=== PATIENT | male | born 2000 | race Caucasian/White ===

== ENCOUNTER 2021-06-04 19:35 | Emergency (ER) | payer OTHER, SELFPAY ==
--- NOTE | ~2021-06-04 | CT_ITS ---
EXAMINATION: CT abdomen pelvis w con DATE: 06/05/2021 00:53 INDICATION: Mid abdominal pain and vomiting for 4 days TECHNIQUE: Computed tomography (CT) of the abdomen and pelvis was performed with 100 cc Omnipaque 350 intravenous contrast. Automated exposure control and iterative reconstruction technique were employe d. Exam dose: 1096.94 mGy-cm total exam DLP. COMPARISON: None. FINDINGS: Normal heart size. No pericardial or pleural effusion. The lung bases are clear. Diffuse hepatic steatosis. No hepatic, splenic, pancreatic, and adrenal or renal space-occupying mass lesion. No bile duct or pancreatic duct dilatation. The gallbladder is contracted. No urinary tract calculus or hydroureteronephrosis. The urinary bladder is unremarkable. Epiploic appendagitis of the sigmoid colon with mild surrounding inflammatory change. Normal appendix . No bowel obstruction, bowel wall thickening, pneumatosis or intraperitoneal free air. Included skeletal structures are unremarkable. IMPRESSION: Epiploic appendagitis of the sigmoid colon Reviewed, dictated and finalized at [facility]. Reviewed, dictated and finalized at [facility].
[2021-06-04 20:10] VITALS: BP 148/71; PULSE 89; RESP 16; TEMP 36.8; O2SAT 98
[2021-06-04 20:47] LABS: Add Urine Microscopic? YES; Appearance Urine Clear (Clear); Bilirubin Urine Negative (Negative); Blood Urine Negative (Negative); Color Urine Yellow (Yellow); Glucose Urine UA Negative (Negative); Ketones Urine Negative (Negative); Leukocyte Esterase Ur Negative LEU/UL (Negative); Mucus Urine Rare /lpf; Nitrate Urine Negative (Negative); Protein Urine 1+ mg/dL (Negative); Specific Grav Ur 1.026 (1.001-1.035); WBC Urine 0-3 /hpf
[2021-06-04 20:50] LABS: Basophils Absolute Auto 0.1 K/mm3 (0.0-0.1); Basophils Percent Auto 0.7 % (0.2-1.2); Eosinophils Absolute Auto 0.1 K/mm3 (0-0.3); Eosinophils Percent Auto 1.6 % (0-4.4); Hematocrit 40.6 % (42.0-52.0); Hemoglobin 14.2 g/dL (14.0-18.0); Immature Granulocyte Absolute 0.01 K/mm3 (0.00-0.031); Immature Granulocyte Percent A 0.1 % (0-0.5); Lymphocytes Absolute Auto 1.44 K/mm3 (0.9-3.2); Lymphocytes Percent Auto 20.9 % (18.3-44.2); Mean Corpuscular Hemoglobin 31.3 pg (26-34); Mean Corpuscular Volume 89.6 fl (80-100); Mean Platelet Volume 9.9 fl (7.4-10.4); Monocytes Absolute Auto 0.6 K/mm3 (0.1-0.6); Monocytes Percent Auto 8.7 % (2.6-8.5); Neutrophils Absolute Auto 4.7 K/mm3 (1.3-6.7); Platelet Count Result 239 k/mm3 (150-375); Red Blood Count 4.53 M/mm3 (4.6-6.20); Red Cell Distribution Width 11.4 % (11.5-14.5); White Blood Count 6.9 K/mm3 (4.5-10.0)
[2021-06-04 21:00] LABS: Alanine Aminotransferase 35 U/L (4-50); Albumin Level 4.7 g/dL (3.7-5.6); Alkaline Phosphatase 86 U/L (58-237); Anion Gap 8 mmol/L (8-16); Aspartate Amino Transferase 35 U/L (17-59); Bilirubin,Total 0.5 mg/dL (0.2-1.3); Blood Urea Nitrogen 24 mg/dL (8-21); Calcium 9.4 mg/dL (8.9-10.7); Carbon Dioxide 30 mmol/L (22-30); Chloride 103 mmol/L (98-107); Estimated CRCL calculation 140 ml/min; Estimated Glomerular Filt Rate > 60; Glucose 96 mg/dL (65-110); Lipase 107 U/L (23-300); Potassium 3.8 mmol/L (3.4-5.0); Sodium 141 mmol/L (134-143)
--- NOTE | 2021-06-04 23:24 | ED.GENADULT ---
HPI - General Adult General Chief complaint: Abdominal Pain Stated complaint: Abdominal Pain Time Seen by Provider: 06/04/21 22:38 History of Present Illness HPI narrative: Patient 20-year-old gentleman who presents to emergency department with chief complaint of abdominal pain. Patient states that today he has been having pain in his lower parts of his abdomen reports its worse whenever he passes gas reports no diarrhea reports has had some nausea with this denies any prior surgical history reports no fever Related Data Home Medications Medication Instructions Recorded Confirmed No Home Medications 06/04/21 06/04/21 Allergies Allergy/AdvReac Type Severity Reaction Status Date / Time peanut Allergy Hives Verified 06/04/21 23:28 Review of Systems Review of Systems: A 10 system review of systems was completed on the patient and is negative except for what is stated in the HPI. Nursing and ancillary documentation was reviewed. Exam Narrative: GENERAL: Well-appearing, well-nourished, and in no acute distress. HEAD: Normocephalic, atraumatic. EYES: PERRLA and EOMI. ENT: Nares clear, no rhinorrhea or epistaxis. Mucous membranes moist. NECK: Supple. CHEST: Clear to auscultation. No respiratory distress. HEART: Regular rate and rhythm. No murmur heard. Normal peripheral pulses. ABDOMEN: Soft, soft tender to palpation, nondistended, normal active bowel sounds. EXTREMITIES: Normal range of motion. No edema. SKIN: Warm, dry, no rash. NEURO: No focal deficits. Alert and oriented x3. PSYCH: Normal mood and affect. Course Vital Signs Vital signs: Vital Signs Temperature 36.8 C 06/04/21 20:10 Pulse Rate 89 06/04/21 20:10 Respiratory Rate 16 06/04/21 20:10 Blood Pressure 148/71 H 06/04/21 20:10 Pulse Oximetry 98 06/04/21 20:10 Temperature 36.8 C 06/04/21 20:10 Pulse Rate 74 06/04/21 23:35 Respiratory Rate 16 06/04/21 23:35 Blood Pressure 135/78 06/04/21 23:35 Pulse Oximetry 100 06/04/21 23:35 Medical Decision Making Vital Signs Vital Signs: Vital Signs Temperature 36.8 C 06/04/21 20:10 Pulse Rate 89 06/04/21 20:10 Respiratory Rate 16 06/04/21 20:10 Blood Pressure 148/71 H 06/04/21 20:10 Pulse Oximetry 98 06/04/21 20:10 Temperature 36.8 C 06/04/21 20:10 Pulse Rate 74 06/04/21 23:35 Respiratory Rate 16 06/04/21 23:35 Blood Pressure 135/78 06/04/21 23:35 Pulse Oximetry 100 06/04/21 23:35 Lab Data Result diagrams: 06/04/21 20:26 06/04/21 20:26 Labs: Lab Results 06/04/21 06/04/21 06/04/21 Range/Units 20:26 20:26 20:29 WBC 6.9 (4.5-10.0) K/mm3 RBC 4.53 L (4.6-6.20) M/mm3 Hgb 14.2 (14.0-18.0) g/dL Hct 40.6 L (42.0-52.0) % MCV 89.6 (80-100) fl MCH 31.3 (26-34) pg MCHC 35.0 (32-36) g/dl RDW 11.4 L (11.5-14.5) % Plt Count 239 (150-375) k/mm3 MPV 9.9 (7.4-10.4) fl Immature Gran % (Auto) 0.1 (0-0.5) % Neut % (Auto) 68.0 (45.5-73.1) % Lymph % (Auto) 20.9 (18.3-44.2) % Slope % (Auto) 8.7 H (2.6-8.5) % Eos % (Auto) 1.6 (0-4.4) % Baso % (Auto) 0.7 (0.2-1.2) % Lymph # (Auto) 1.44 (0.9-3.2) K/mm3 Slope # (Auto) 0.6 (0.1-0.6) K/mm3 Eos # (Auto) 0.1 (0-0.3) K/mm3 Baso # (Auto) 0.1 (0.0-0.1) K/mm3 Abs Immat Gran (auto) 0.01 (0.00-0.031) K/mm3 Absolute Neuts (auto) 4.7 (1.3-6.7) K/mm3 Absolute Nucleated RBC 0.0 (0.0-0.012) K/mm3 Nucleated RBC % 0.0 (0.0-0.2) % Sodium 141 (134-143) mmol/L Potassium 3.8 (3.4-5.0) mmol/L Chloride 103 (98-107) mmol/L Carbon Dioxide 30 (22-30) mmol/L Anion Gap 8 (8-16) mmol/L BUN 24 H (8-21) mg/dL Creatinine 1.00 (0.7-1.3) mg/dL Estim Creat Clear Calc 140 ml/min Estimated GFR > 60 (59 - ) Glucose 96 (65-110) mg/dL Calcium 9.4 (8.9-10.7) mg/dL Total Bilirubin 0.5 (0.2-1.3) mg/dL AST 35 (17-59) U/L A
[2021-06-04] MEDS: SODIUM CHLORIDE 0.9% IV 1,000 ML 999 ML IV CONT (23:30)
[2021-06-04] MEDS: ONDANSETRON INJ 4 MG/2 ML VIAL IV PUSH (23:31)
[2021-06-04] MEDS: KETOROLAC 30 MG/ML VIAL (*BKC) IV PUSH (23:31)
[2021-06-04 23:35] VITALS: BP 135/78; PULSE 74; RESP 16; O2SAT 100
[2021-06-05 01:50] VITALS: BP 135/87; PULSE 89; RESP 14; O2SAT 99
== END 2021-06-05 01:47 | disposition home or self-care (01) ==
PROVIDERS: Emergency Medicine; Emergency Provider Emergency Medicine
DX: K63.89 Other specified diseases of intestine (principal)
CPT/HCPCS: 36415; 74177; 80053; 81001; 83690; 85025; 96361; 96374; 96375; 99284; J1885; J2405; J7030; Q9967

== ENCOUNTER 2022-01-09 00:17 | Emergency (ER) | payer OTHER, SELFPAY ==
[2022-01-09 00:18] VITALS: BP 127/90; PULSE 80; RESP 18; TEMP 37; O2SAT 100
--- NOTE | 2022-01-09 01:07 | ED.EAR ---
HPI - Ear Problem General Chief complaint: Ear Stated complaint: left ear pain Time Seen by Provider: 01/09/22 00:48 History of Present Illness HPI Narrative: Patient is a 21-year-old male here for evaluation of decreased hearing out of the left ear for the past day which he attributes to earwax. Patient attempted to use [id number] hydrogen peroxide, ear candles, and attempted to use a Q-tip to remove the wax without success. States he has a history of heavy earwax in his ears and he also uses headphones. Denies ear pain, ear discharge, pain behind the ear, or any other symptoms. Related Data Allergies Allergy/AdvReac Type Severity Reaction Status Date / Time peanut Allergy Hives Verified 01/09/22 00:19 Review of Systems Review of Systems: Gen.: Denies fevers or chills Eyes: Denies eye pain or visual change ENT: Reports decreased hearing on the left ear Respiratory: Denies shortness of breath or cough CV: Denies chest pain or palpitations GI: Denies abdominal pain nausea, emesis or diarrhea denies burning, urgency, frequency or hematuria Musculoskeletal: Denies back pain or muscle pain Neuro: Denies numbness, tingling, weakness or focal weakness Skin: Denies rash Except as documented, all other systems reviewed and negative All systems reviewed & are unremarkable except as noted in HPI and below Exam Narrative: Gen: Alert, oriented, no acute distress Eyes: EOMI, no icterus ENT: Large amount of cerumen obstructing TM on the left. TM is clear on the right. Pulm: Respirations even and unlabored, symmetric thorax expansion, no audible stridor or visible cyanosis GI: No distension, no voluntary/involuntary guarding Neuro: AOx4, moves all extremities without apparent difficulty or weakness, follows commands Skin: No jaundice, no visible bruising, rashes, lesions or wounds on exposed skin Psych: Normal mood/affect, insight/judgement good, adequate fund of knowledge, recent/remote memory intact Course Vital Signs Vital signs: Vital Signs Temperature 98.6 F 01/09/22 00:18 Pulse Rate 80 01/09/22 00:18 Respiratory Rate 18 01/09/22 00:18 Blood Pressure 127/90 01/09/22 00:18 Pulse Oximetry 100 01/09/22 00:18 Temperature 98.6 F 01/09/22 00:18 Pulse Rate 80 01/09/22 00:18 Respiratory Rate 18 01/09/22 00:18 Blood Pressure 127/90 01/09/22 00:18 Pulse Oximetry 100 01/09/22 00:18 Procedures Ear Wax Removal Left Ear: Ear Wax Removal Date: 01/09/22 Ear Wax Removal Time: 01:08 Cerumenolytic Used: other (Irrigated with catheter tip on syringe with warm tap water.) Results: Re-examined: cerumen removed completely TM Examination: TM(s) intact, normal appearance Ear Canal Exam: atraumatic Patient Tolerated Procedure: well Complications: no problems Technique: ear canal irrigated Additional Comments: Large amount of cerumen irrigated out of left ear canal. TM clear postprocedure. Medical Decision Making MDM Narrative Medical decision making narrative: 21-year-old male here for evaluation of decreased hearing of the left ear. Left TM is obstructed by cerumen. Cerumen was removed by irrigation and patient's hearing was restored to normal. Advised Debrox and bulb syringe irrigation in the future for patient's ceruminosis, advised against Q tip use. Vital Signs Vital Signs: Vital Signs Temperature 98.6 F 01/09/22 00:18 Pulse Rate 80 01/09/22 00:18 Respiratory Rate 18 01/09/22 00:18 Blood Pressure 127/90 01/09/22 00:18 Pulse Oximetry 100 01/09/22 00:18 Temperature 98.6 F 01/09/22 00:18 Pulse Rate 80 01/09/22 00:18 Respiratory Rate 18 01/09/22 00:18 Blood Pressure 127/90 01/09/22 00:18 Pulse Oximetry 100 01/09/22 00:18 Discharge Plan Discharge Clinical Impression: Cerumen impaction Qualifiers: Laterality: left Qualified Code(s): H61.22 - Impacted cerumen, left ear Patient Dispositio
== END 2022-01-09 01:23 | disposition home or self-care (01) ==
PROVIDERS: Emergency Provider Emergency Medicine
DX: H61.22 Impacted cerumen, left ear (principal)
CPT/HCPCS: 69209; 99283

== ENCOUNTER 2022-06-14 15:35 | Emergency (ER) | payer OTHER, SELFPAY ==
--- NOTE | ~2022-06-14 | XR_ITS ---
EXAMINATION: XR shoulder RT min 2V INDICATION: Right shoulder pain TECHNIQUE: Four views of the right shoulder are submitted. COMPARISON: None FINDINGS: Normal alignment. No fracture. Glenohumeral and acromioclavicular joint spaces are normal. Soft tissues are unremarkable. IMPRESSION: 1. No acute osseous abnormality. Reviewed, dictated and finalized at [facility].
--- NOTE | ~2022-06-14 | XR_ITS ---
EXAMINATION: XR elbow RT min 3V INDICATION: Right elbow pain TECHNIQUE: Four views of the right elbow are obtained. COMPARISON: None available FINDINGS: There is posterior soft tissue swelling overlying the olecranon. Bone alignment is normal. There is no fracture. No joint effusion is identified. IMPRESSION: 1. Soft tissue swelling without acute osseous abnormality. Reviewed, dictated and finalized at location [facility].
--- NOTE | ~2022-06-14 | XR_ITS ---
EXAMINATION: XR wrist RT min 3V INDICATION: Right wrist pain TECHNIQUE: Four views of the right wrist are obtained. COMPARISON: None available FINDINGS: There is no fracture, dislocation, or subluxation. The bones, soft tissues, and joint space s are normal. IMPRESSION: 1. No acute osseous abnormality. Reviewed, dictated and finalized at location [facility].
[2022-06-14 15:37] VITALS: BP 120/68; PULSE 85; RESP 20; TEMP 36.6; O2SAT 99
--- NOTE | 2022-06-14 18:19 | WC.ED.TRAUMA ---
HPI - Trauma General Chief Complaint: Extremity Injury, Upper Stated Complaint: fell at work, hit right elbow and arm Time Seen by Provider: 06/14/22 18:08 History of Present Illness HPI narrative: Patient is a 21-year-old male here for evaluation of right shoulder elbow and wrist pain after a fall today. Patient states that he was putting something away while he was at work when he slipped on a puddle at work, causing him to fall and land directly on his right elbow. He is reported pain and swelling at the site ever since, also noting shooting pains down his arm. He has not taken any medicine for his pain yet. Denies head injury or loss consciousness in the fall. Related Data Allergies Allergy/AdvReac Type Severity Reaction Status Date / Time peanut Allergy Hives Verified 01/09/22 00:19 Review of Systems Review of Systems: Gen.: Denies fevers or chills Eyes: Denies eye pain or visual change ENT: Denies congestion Respiratory: Denies shortness of breath or cough CV: Denies chest pain or palpitations GI: Denies abdominal pain nausea, emesis or diarrhea denies burning, urgency, frequency or hematuria Musculoskeletal: Reports right elbow pain wrist pain and shoulder pain. Neuro: Denies numbness, tingling, weakness or focal weakness Skin: Denies rash Except as documented, all other systems reviewed and negative Exam Narrative: APPEARANCE: Well appearing, no pain in distress, well-nourished. Head: Normocephalic and atraumatic. EYES: PERRLA/EOMI, conjunctivae clear NOSE: No nasal drainage EARS: External ear normal in appearance THROAT: Oropharynx is clear. Mucous membranes are moist. NECK: No tenderness to palpation of C-spine. Supple. No adenopathy, no masses. RESPIRATORY: Airway patent, respirations nonlabored. Clear to auscultation bilaterally, no rales, rhonchi, wheezing. CARDIOVASCULAR: Regular rate and rhythm without murmurs, rubs, or gallops. ABDOMINAL: Normoactive bowel sounds. Soft, nontender, nondistended. No rebound tenderness or guarding. MUSCULOSKELETAL: Tender to palpation to right olecranon. No bony tenderness to right humerus or clavicle. Full range of motion in right upper extremity, does note pain with elbow extension. 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 Extremities are warm and well-perfused. Moves all extremities well. No edema. NEURO: Normal speech. No focal neurologic deficits. SKIN: Skin is warm and dry. No rashes. PSYCHIATRIC: Normal affect/mood. Course Vital Signs Vital signs: Vital Signs Temperature 97.9 F 06/14/22 15:37 Pulse Rate 85 06/14/22 15:37 Respiratory Rate 20 06/14/22 15:37 Blood Pressure 120/68 06/14/22 15:37 Pulse Oximetry 99 06/14/22 15:37 Oxygen Delivery Room Air 06/14/22 15:37 Temperature 97.9 F 06/14/22 15:37 Pulse Rate 85 06/14/22 15:37 Respiratory Rate 20 06/14/22 15:37 Blood Pressure 120/68 06/14/22 15:37 Pulse Oximetry 99 06/14/22 15:37 Oxygen Delivery Room Air 06/14/22 15:37 MDM - Trauma MDM Narrative Medical decision making narrative: 21-year-old male here for evaluation of elbow pain after what sounds like a mechanical fall at work today. He is complaining of elbow pain shoulder pain and wrist pain and all of the x-rays in the ED showed no acute fracture. Likely sprain or strain of the elbow. Patient was requesting a sling which I think is reasonable for his pain. He will be discharged with supportive care and ibuprofen. Discharge Plan Discharge Clinical Impression: Elbow pain Patient Disposition: Home, Self-Care Condition: Stable Instructions: Antibiotic Form, Elbow Sprain (ED) Additional Instructions: Your x-rays in the ER are negative. It is likely you have a sprain of your elbow. Please wear the sling for your comfort. Alternate between Tylenol and ibuprofen. You can take 1000mg of Tylenol every 6 hours and
[2022-06-14] MEDS: IBUPROFEN 600 MG TABLET PO (19:06)
== END 2022-06-14 19:21 | disposition home or self-care (01) ==
PROVIDERS: Emergency Provider Emergency Medicine
DX: S59.901A Unspecified injury of right elbow, initial encounter (principal); S49.91XA Unspecified injury of right shoulder and upper arm, initial encounter; S69.91XA Unspecified injury of right wrist, hand and finger(s), initial encounter; W01.0XXA Fall on same level from slipping, tripping and stumbling without subsequent striking against object, initial encounter
CPT/HCPCS: 73030; 73080; 73110; 99284; A9270

== ENCOUNTER 2022-07-24 13:56 | Emergency (ER) | payer OTHER, SELFPAY ==
--- NOTE | ~2022-07-24 | CT_ITS ---
EXAMINATION: CT abdomen pelvis w con DATE: 07/24/2022 15:15 INDICATION: Periumbilical pain. TECHNIQUE: Computed tomography (CT) of the abdomen and pelvis was performed with 100 cc Omnipaque 350 intravenous contrast. The dose-length product was 845.16 mGy-cm. Automated exposure control and iter ative reconstruction technique were employed. COMPARISON: CT dated 06/05/2021 FINDINGS: Lung bases are unremarkable. Heart size normal. No significant pleural or pericardial effus ion. No significant vascular abnormality. No lymphadenopathy. Fatty infiltration of the liver. The ad renal glands and kidneys are unremarkable. There is borderline size spleen without focal mass. There is an accessory splenule medial to the spleen. Gallbladder is present. Bilateral prominent ileocolic lymph nodes, likely reactive. Normal appendix. Nonobstructive bowel pattern. No free air or free flui d. IMPRESSION: 1. No acute abdominal abnormality. Reviewed, dictated and finalized at location [facility]. 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
[2022-07-24 14:05] VITALS: BP 130/81; PULSE 85; RESP 16; TEMP 36.1; O2SAT 99
[2022-07-24 14:48] LABS: Basophils Absolute Auto 0.1 K/mm3 (0.0-0.1); Basophils Percent Auto 1.2 % (0.2-1.2); Eosinophils Absolute Auto 0.2 K/mm3 (0-0.3); Eosinophils Percent Auto 5.6 % (0-4.4); Hematocrit 43.4 % (42.0-52.0); Immature Granulocyte Absolute 0.01 K/mm3 (0.00-0.031); Immature Granulocyte Percent A 0.2 % (0-0.5); Lymphocytes Absolute Auto 1.31 K/mm3 (0.9-3.2); Lymphocytes Percent Auto 31.7 % (18.3-44.2); Mean Corpuscular HGB Conc 34.6 g/dl (32-36); Mean Corpuscular Hemoglobin 31.4 pg (26-34); Mean Platelet Volume 9.6 fl (7.4-10.4); Monocytes Absolute Auto 0.5 K/mm3 (0.1-0.6); Monocytes Percent Auto 11.4 % (2.6-8.5); Neutrophils Absolute Auto 2.1 K/mm3 (1.3-6.7); Neutrophils Percent Auto 49.9 % (45.5-73.1); Platelet Count Result 252 k/mm3 (150-375); Red Blood Count 4.77 M/mm3 (4.6-6.20); Red Cell Distribution Width 11.2 % (11.5-14.5); White Blood Count 4.1 K/mm3 (4.5-10.0)
[2022-07-24 15:00] LABS: Alanine Aminotransferase 37 U/L (6-50); Albumin Level 4.7 g/dL (3.5-5.1); Alkaline Phosphatase 70 U/L (38-126); Anion Gap 7 mmol/L (8-16); Aspartate Amino Transferase 40 U/L (17-59); Bilirubin,Total 0.6 mg/dL (0.2-1.3); Blood Urea Nitrogen 16 mg/dL (9-20); Calcium 9.2 mg/dL (8.4-10.2); Carbon Dioxide 28 mmol/L (22-30); Chloride 102 mmol/L (98-107); Estimated CRCL calculation 138 ml/min; Estimated Glomerular Filt Rate > 60; Glucose 102 mg/dL (65-110); Lipase 105 U/L (23-300); Potassium 4.4 mmol/L (3.4-5.0); Sodium 137 mmol/L (137-145)
--- NOTE | 2022-07-24 15:03 | ED.ABDPAIN ---
HPI - Abdominal Pain General Chief Complaint: Abdominal Pain Stated Complaint: ABD Pain Since Time Seen by Provider: 07/24/22 14:35 History of Present Illness HPI narrative: Patient is a 22-year-old male here for evaluation of periumbilical abdominal pain since last evening. Patient states the pain developed while he was at work, is described as a sharp stabbing pain and is severe. Patient states the pain is worse after eating. He has not attempted any medicine for the pain. He also notes nausea and constipation, no vomiting or blood in his stools. He has never had surgery on his abdomen. No fevers or chills. Related Data Allergies Allergy/AdvReac Type Severity Reaction Status Date / Time peanut Allergy Hives Verified 07/24/22 14:05 Review of Systems Review of Systems: Gen.: Denies fevers or chills Eyes: Denies eye pain or visual change ENT: Denies congestion Respiratory: Denies shortness of breath or cough CV: Denies chest pain or palpitations GI: Reports abdominal pain. Denies nausea, emesis or diarrhea denies burning, urgency, frequency or hematuria Musculoskeletal: Denies back pain or muscle pain Neuro: Denies numbness, tingling, weakness or focal weakness Skin: Denies rash Except as documented, all other systems reviewed and negative Exam Narrative: APPEARANCE: Well appearing, no pain in distress, well-nourished. Head: Normocephalic and atraumatic. EYES: PERRLA/EOMI, conjunctivae clear NOSE: No nasal drainage EARS: External ear normal in appearance THROAT: Oropharynx is clear. Mucous membranes are moist. NECK: Supple. No adenopathy, no masses. RESPIRATORY: Airway patent, respirations nonlabored. Clear to auscultation bilaterally, no rales, rhonchi, wheezing. CARDIOVASCULAR: Regular rate and rhythm without murmurs, rubs, or gallops. ABDOMINAL: Tender in the periumbilical region. normoactive bowel sounds. Soft, nondistended. No rebound tenderness or guarding. MUSCULOSKELETAL: Extremities are warm and well-perfused. Moves all extremities well. No edema. NEURO: Normal speech. No focal neurologic deficits. SKIN: Skin is warm and dry. No rashes. PSYCHIATRIC: Normal affect/mood.. Course Vital Signs Vital signs: Vital Signs Temperature 97.0 F L 07/24/22 14:05 Pulse Rate 85 12/02/22 14:05 Respiratory Rate 16 07/24/22 14:05 Blood Pressure 130/81 07/24/22 14:05 Pulse Oximetry 99 07/24/22 14:05 Oxygen Delivery Room Air 07/24/22 14:05 Temperature 97.0 F L 07/24/22 14:05 Pulse Rate 85 07/24/22 14:05 Respiratory Rate 16 07/24/22 14:05 Blood Pressure 130/81 07/24/22 14:05 Pulse Oximetry 99 07/24/22 14:05 Oxygen Delivery Room Air 07/24/22 14:05 MDM - Abdominal Pain MDM Narrative Medical decision making narrative: 22-year-old male here for evaluation of periumbilical abdominal pain over the past day associated with nausea and constipation. Vital signs are normal, he has slight tenderness in the periumbilical region but no rebound or guarding. His basic labs are unremarkable, no leukocytosis, normal lipase. CT scan without any abnormalities. Patient feeling improved after pain meds. Likely contribution of constipation to patient's pain. He will be discharged home; advised MiraLAX, Maalox as needed for pain. Discussed return precautions and he voiced understanding. Lab Data 07/24/22 14:43 07/24/22 14:43 Labs: Lab Results 07/24/22 07/24/22 07/24/22 Range/Units 14:43 14:43 15:21 WBC 4.1 L (4.5-10.0) K/mm3 RBC 4.77 (4.6-6.20) M/mm3 Hgb 15.0 (14.0-18.0) g/dL Hct 43.4 (42.0-52.0) % MCV 91.0 (80-100) fl MCH 31.4 (26-34) pg MCHC 34.6 (32-36) g/dl RDW 11.2 L (11.5-14.5) % Plt Count 252 (150-375) k/mm3 MPV 9.6 (7.4-10.4) fl Immature Gran % (Auto) 0.2 (0-0.5) % Neut % (Auto) 49.9 (45.5-73.1) % Lymph % (Auto) 31.7 (18.3-44.2) % Leon % (Auto) 11.4 H (2.6-8.5) % Eos %
[2022-07-24 15:31] LABS: Appearance Urine Clear (Clear); Bilirubin Urine Negative (Negative); Blood Urine Negative (Negative); Color Urine Yellow (Yellow); Glucose Urine UA Negative (Negative); Ketones Urine Negative (Negative); Leukocyte Esterase Ur Negative LEU/UL (Negative); Nitrate Urine Negative (Negative); Protein Urine Negative (Negative)
[2022-07-24] MEDS: SODIUM CHLORIDE 0.9% IV 1,000 ML 999 ML IV CONT (15:36)
[2022-07-24] MEDS: KETOROLAC 15 MG/ML VIAL (*BKC) IV PUSH (15:36)
[2022-07-24] MEDS: FAMOTIDINE 20 MG/2 ML VIAL IV PUSH (15:36)
[2022-07-24 15:38] LABS: Add Urine Microscopic? NO
== END 2022-07-24 16:35 | disposition home or self-care (01) ==
PROVIDERS: Emergency Medicine; Emergency Provider Physician Assistant; PCP Physician Assistant
DX: R10.33 Periumbilical pain (principal)
CPT/HCPCS: 36415; 74177; 80053; 81003; 83690; 85025; 96361; 96374; 96375; 99284; J1885; J7030; Q9967

== ENCOUNTER 2023-07-20 06:32 | Emergency (ER) | payer OTHER, SELFPAY ==
[2023-07-20 06:34] VITALS: BP 138/72; PULSE 82; RESP 20; TEMP 37.1; O2SAT 99
--- NOTE | 2023-07-20 09:30 | ED.GENADULT ---
HPI - General Adult General Chief complaint: Skin/Abscess/Foreign Body Stated complaint: rash Time Seen by Provider: 07/20/23 08:54 History of Present Illness HPI narrative: Kirk Batista is a 23 y/o male who presents with reports of rash to his left third and fourth fingers that started about 3 months ago. He states it is itchy and harry when he washes his hands. Related Data Allergies Allergy/AdvReac Type Severity Reaction Status Date / Time peanut Allergy Hives Verified 07/24/22 14:05 Review of Systems Review of Systems: CONSTITUTIONAL: Denies fever, chills, or sweats. EYES: Denies visual changes, redness, or discharge. ENT: Denies rhinorrhea, congestion, sore throat, or otalgia. CARDIOVASCULAR: Denies chest pain, palpitations, or edema. RESPIRATORY: Denies cough or dyspnea. GASTROINTESTINAL: Denies abdominal pain, nausea, vomiting, or diarrhea. GENITOURINARY: Denies dysuria or hematuria. SKIN: itchy rash to his left third and fourth fingers for 3 months MUSCULOSKELETAL: Denies back pain, joint pain, or myalgia. NEUROLOGIC: Denies headache, numbness, dizziness, or weakness. PSYCHIATRIC: Denies anxiety or depression. Exam Narrative: GENERAL: Well-appearing, well-nourished, and in no acute distress. HEAD: Normocephalic, atraumatic. EYES: PERRLA and EOMI. ENT: Nares clear, no rhinorrhea or epistaxis. Mucous membranes moist. Oropharynx without tonsillar hypertrophy exudate or other lesions. NECK: Supple. No adenopathy or masses. No carotid bruits or JVD CHEST: Clear to auscultation. No respiratory distress. No wheezes rales or rhonchi HEART: Regular rate and rhythm. No murmur heard. Normal peripheral pulses. ABDOMEN: Soft, nontender, nondistended, normal active bowel sounds. EXTREMITIES: Normal range of motion. No edema. SKIN: Warm, dry,scaley pink rash to the base of his left third and fourth phalanx NEURO: No focal deficits. Alert and oriented x3. PSYCH: Normal mood and affect. Course Vital Signs Vital signs: Vital Signs Temperature 37.1 C 07/20/23 06:34 Pulse Rate 82 07/20/23 06:34 Respiratory Rate 20 07/20/23 06:34 Blood Pressure 138/72 07/20/23 06:34 Pulse Oximetry 99 07/20/23 06:34 Oxygen Delivery Room Air 07/20/23 06:34 Temperature 37.1 C 07/20/23 06:34 Pulse Rate 82 07/20/23 06:34 Respiratory Rate 20 07/20/23 06:34 Blood Pressure 138/72 07/20/23 06:34 Pulse Oximetry 99 07/20/23 06:34 Oxygen Delivery Room Air 07/20/23 06:34 Medical Decision Making MDM Narrative Medical decision making narrative: On exam pt is noted to have scaly red / pink rash to the anterior aspect of his left third and fourth phalanx He states it has been present for about 3 months and gets worse when he tries to wash his hands 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 concern for : contact dermatitis - will start pt on Zyrtec daily/ Benadryl at bedtime/ triamcinolone cream to affected area twice daily. Counseled pt to wear gloves when coming in contact to the possible irritants at work. Follow up with PCP return to the ED for any worsening symptoms or concerns. Medical Records Medical records reviewed: Yes I reviewed the external patient's medical records. Vital Signs Vital Signs: Vital Signs Temperature 37.1 C 07/20/23 06:34 Pulse Rate 82 07/20/23 06:34 Respiratory Rate 20 07/20/23 06:34 Blood Pressure 138/72 07/20/23 06:34 Pulse Oximetry 99 07/20/23 06:34 Oxygen Delivery Room Air 07/20/23 06:34 Temperature 37.1 C 07/20/23 06:34 Pulse Rate 82 07/20/23 06:34 Respiratory Rate 20 07/20/23 06:34 Blood Pressure 138/72 07/20/23 06:34 Pulse Oximetry 99 07/20/23 06:34 Oxygen Delivery Room Air 07/20/23 06:34 Vitals reviewed by me. Discharge Plan Discharge Clinical Impression: Contact dermatitis Patient Disposition: Home, Self-Care Condition: Stable Instructions: Antibiotic
== END 2023-07-20 09:47 | disposition home or self-care (01) ==
PROVIDERS: Emergency Provider Nurse Practitioner Family; PCP Registered Nurse
DX: L25.9 Unspecified contact dermatitis, unspecified cause (principal)
CPT/HCPCS: 99283

== ENCOUNTER 2023-10-23 23:40 | Emergency (ER) | payer OTHER, SELFPAY ==
[2023-10-23 23:49] VITALS: BP 127/100; PULSE 91; RESP 18; TEMP 36.6; O2SAT 97
--- NOTE | 2023-10-23 23:55 | PC.NURSE ---
pt unable to urinate at this time. this rn educated pt the benefit of providing a urine sample. this rn left pt a urine specimen cup along with cleansing towelette and provided pt instructions to use specimen cup and to utilize call light when pt was able to provide urine sample.
[2023-10-24 00:10] LABS: Appearance Urine Clear (Clear); Bilirubin Urine Negative (Negative); Blood Urine Negative (Negative); Color Urine Yellow (Yellow); Glucose Urine UA Negative (Negative); Ketones Urine Negative (Negative); Leukocyte Esterase Ur Negative LEU/UL (Negative); Nitrate Urine Negative (Negative); Protein Urine Negative (Negative); Specific Grav Ur 1.024 (1.001-1.035); pH Urine 6.5 (5.0-9.0)
[2023-10-24 00:15] LABS: Add Urine Microscopic? NO
--- NOTE | 2023-10-24 00:31 | ED.GENADULT ---
HPI - General Adult General Chief complaint: Recheck/Abnormal Lab/Rx Stated complaint: std check Time Seen by Provider: 10/24/23 00:11 Source: patient Mode of arrival: ambulatory Limitations: no limitations History of Present Illness HPI narrative: This is a 23-year-old male who presents to the ED for STD check. Patient states that his friend told him that his ex-girlfriend had chlamydia. No known positive test. He is seeking testing for this but denying any symptoms at this point. Denies any scrotal pain, swelling, penile pain or discharge. Denies urinary symptoms. Related Data Allergies Allergy/AdvReac Type Severity Reaction Status Date / Time peanut Allergy Hives Verified 10/23/23 23:53 Review of Systems Review of Systems: All systems as dictated in HPI Exam Narrative: GENERAL: Well-appearing, well-nourished, and in no acute distress. HEAD: Normocephalic, atraumatic. EYES: PERRLA and EOMI. ENT: Nares clear, no rhinorrhea or epistaxis. Mucous membranes moist. Oropharynx without tonsillar hypertrophy exudate or other lesions. NECK: Supple. No adenopathy or masses. CHEST: No respiratory distress. Clear to auscultation. No wheezes rales or rhonchi HEART: Regular rate and rhythm. No murmur heard. Normal peripheral pulses. ABDOMEN: Soft, nontender, nondistended, normal active bowel sounds. MSK: Normal range of motion. No edema. SKIN: Warm, dry, no rash. NEURO: Alert and oriented x3. No focal deficits. PSYCH: Normal mood and affect. Course Vital Signs Vital signs: Vital Signs Temperature 97.9 F 10/23/23 23:49 Pulse Rate 91 10/23/23 23:49 Respiratory Rate 18 10/23/23 23:49 Blood Pressure 127/100 H 10/23/23 23:49 Pulse Oximetry 97 10/23/23 23:49 Oxygen Delivery Room Air 10/23/23 23:49 Temperature 97.9 F 10/23/23 23:49 Pulse Rate 91 10/23/23 23:49 Respiratory Rate 18 10/23/23 23:49 Blood Pressure 127/100 H 10/23/23 23:49 Pulse Oximetry 97 10/23/23 23:49 Oxygen Delivery Room Air 10/23/23 23:49 Medical Decision Making MDM Narrative Medical decision making narrative: 23-year-old male presenting for STD check. Possible STD exposure but is unsure. Vitals are normal. Exam is benign. Gonorrhea, chlamydia, Trichomonas test all negative. Discharged in stable condition Vital Signs Vital Signs: Vital Signs Temperature 97.9 F 10/23/23 23:49 Pulse Rate 91 10/23/23 23:49 Respiratory Rate 18 10/23/23 23:49 Blood Pressure 127/100 H 10/23/23 23:49 Pulse Oximetry 97 10/23/23 23:49 Oxygen Delivery Room Air 10/23/23 23:49 Temperature 97.9 F 10/23/23 23:49 Pulse Rate 91 10/23/23 23:49 Respiratory Rate 18 10/23/23 23:49 Blood Pressure 127/100 H 10/23/23 23:49 Pulse Oximetry 97 10/23/23 23:49 Oxygen Delivery Room Air 10/23/23 23:49 Lab Data Labs: Lab Results 10/23/23 10/24/23 Range/Units 00:03 00:03 Urine Color Yellow (Yellow) Urine Appearance Clear (Clear) Urine pH 6.5 (5.0-9.0) Ur Specific [place] 1.024 (1.001-1.035) Urine Protein Negative (Negative) mg/dL Urine Glucose (UA) Negative (Negative) mg/dL Urine Ketones Negative (Negative) mg/dL Ur Blood (Man) Negative (Negative) Urine Nitrate Negative (Negative) Urine Bilirubin Negative (Negative) Urine Urobilinogen 1.0 (<2.0) mg/dL Leukocyte Esterase Rfl Negative (Negative) AZ/UL C. trachomatis (PCR) Not detected (NOT DETECTE) N. gonorrhoeae (PCR) Not detected (NOT DETECTE) T. vaginalis (PCR) Not detected (NOT DETECTE) Discharge Plan Discharge Clinical Impression: Screen for STD (sexually transmitted disease) Patient Disposition: Home, Self-Care Condition: Stable Instructions: Antibiotic Form Additional Instructions: Your exam today shows no evidence of chlamydia. No need for antibiotics at this point. Prescriptions: No Action Debrox 6.5 % drops 5 drp
[2023-10-24 01:26] LABS: Trichomonas Vag PCR NOT DETECTED (NOT DETECTE)
[2023-10-24 01:49] LABS: Chlamydia trachomatis NOT DETECTED (NOT DETECTE); Neisseria gonorrhoeae PCR NOT DETECTED (NOT DETECTE)
[2023-10-24 02:24] VITALS: BP 127/99; PULSE 87; RESP 18; O2SAT 97
== END 2023-10-24 02:14 | disposition home or self-care (01) ==
PROVIDERS: Emergency Provider Physician Assistant; PCP Registered Nurse
DX: Z11.3 Encounter for screening for infections with a predominantly sexual mode of transmission (principal)
CPT/HCPCS: 81003; 87491; 87591; 87661; 99283

== ENCOUNTER 2023-10-30 12:01 | Emergency (ER) | payer OTHER, SELFPAY ==
--- NOTE | ~2023-10-30 | XR_ITS ---
XR chest 1V portable DATE: 10/30/2023 12:59 INDICATION: Cough. Dyspnea. TECHNIQUE: Portable PA chest COMPARISON: None FINDINGS: Normal heart size. No hilar or mediastinal enlargement. No pulmonary infiltrate or consolid ation, pleural effusion or pulmonary vascular congestion or pneumothorax. Included skeletal structures are unremarkable. IMPRESSION: No active cardiopulmonary disease Reviewed, dictated and finalized at location A. TURNER MACHINE OPERATOR
[2023-10-30 12:06] VITALS: BP 155/79; PULSE 85; RESP 20; TEMP 36.4; O2SAT 99
--- NOTE | 2023-10-30 12:24 | ECG_ITS ---
Measurements Intervals [place] Rate: 81 P: 6 [place]: 163 QRS: -3 QRSD: 101 T: 35 QT: 324 QTc: 377 Interpretive Statements SINUS RHYTHM DELAYED PRECORDIAL R/S TRANSITION BASELINE ARTIFACT- I, II, III, AVR, AVF BORDERLINE ECG NO PREVIOUS ECG AVAILABLE FOR COMPARISON Electronically Signed On 10-30-2023 13:10:05 SEWING MACHINE OPERATOR ZIPPER by Vivek Cisneros D.O.
--- NOTE | 2023-10-30 12:33 | ED.GENADULT ---
HPI - General Adult General Chief complaint: Ear Stated complaint: ear ringing, ST. Time Seen by Provider: 10/30/23 12:10 Source: patient Mode of arrival: ambulatory Limitations: no limitations History of Present Illness HPI narrative: This is a 23-year-old male who presents to the ED with chief complaint of URI symptoms for the past 2 days. Endorses cough, congestion, left ear fullness, left ear ringing, shortness of breath and subjective fevers. Denies body aches. Unsure of any sick exposures but worsened drive-through line. Denies chest pain, abdominal pain, nausea, vomiting, urinary symptoms. Related Data Allergies Allergy/AdvReac Type Severity Reaction Status Date / Time peanut Allergy Hives Verified 10/30/23 12:04 Review of Systems Review of Systems: All systems as dictated in HPI Exam Narrative: GENERAL: Well-appearing, well-nourished, and in no acute distress. HEAD: Normocephalic, atraumatic. EYES: PERRLA and EOMI. ENT: Bilateral tympanic membrane injection. No bulging. Nasal congestion present. No rhinorrhea or epistaxis. mucous membranes moist. Oropharynx without tonsillar hypertrophy exudate or other lesions. NECK: Supple. No adenopathy or masses. CHEST: No respiratory distress. Clear to auscultation. No wheezes rales or rhonchi HEART: Regular rate and rhythm. No murmur heard. Normal peripheral pulses. ABDOMEN: Soft, nontender, nondistended, normal active bowel sounds. MSK: Normal range of motion. No edema. SKIN: Warm, dry, no rash. NEURO: Alert and oriented x3. No focal deficits. PSYCH: Normal mood and affect. Course Vital Signs Vital signs: Vital Signs Temperature 97.6 F 10/30/23 12:06 Pulse Rate 85 10/30/23 12:06 Respiratory Rate 20 10/30/23 12:06 Blood Pressure 155/79 H 10/30/23 12:06 Pulse Oximetry 99 10/30/23 12:06 Temperature 98.5 F 10/30/23 13:50 Pulse Rate 76 10/30/23 13:50 Respiratory Rate 17 10/30/23 13:50 Blood Pressure 123/71 10/30/23 13:50 Pulse Oximetry 99 10/30/23 13:50 Medical Decision Making [facility] Narrative Medical decision making narrative: This is a 23-year-old male who presents to the ED with chief complaint of URI symptoms for the past 2 days. Vitals are normal. Exam shows nasal congestion and left tympanic injection. Otherwise exam is benign Viral swabs are negative. Strep swab negative. EKG shows normal sinus rhythm. Chest x-ray is also normal. Symptoms consistent syndrome. Prescription for Flonase given. Pt will be discharged in stable condition. Return precautions given and supportive measures discussed. Pt is understanding and agreeable with plan for discharge and follow-up with PCP. Vital Signs Vital Signs: Vital Signs Temperature 97.6 F 10/30/23 12:06 Pulse Rate 85 10/30/23 12:06 Respiratory Rate 20 10/30/23 12:06 Blood Pressure 155/79 H 10/30/23 12:06 Pulse Oximetry 99 10/30/23 12:06 Temperature 98.5 F 10/30/23 13:50 Pulse Rate 76 10/30/23 13:50 Respiratory Rate 17 10/30/23 13:50 Blood Pressure 123/71 10/30/23 13:50 Pulse Oximetry 99 10/30/23 13:50 Lab Data Labs: Lab Results 10/30/23 Range/Units 12:17 Influenza A (RT-PCR) Negative (Negative) Influenza B (RT-PCR) Negative (Negative) RSV (RT-PCR) Negative (Negative) SARS-CoV-2 RNA (RT-PCR) Negative (Negative) Group A Strep (PCR) Not detected (Negative) Discharge Plan Discharge Clinical Impression: Acute viral syndrome Patient Disposition: Home, Self-Care Condition: Stable Instructions: Antibiotic Form Additional Instructions: Your exam today is reassuring. No evidence of COVID or flu RSV. No evidence of pneumonia. This is probably a viral illness that will get better in a few days. Continue to stay very well hydrated. Use Advil cold and Sinus for congestion. Also use Flonase daily for congestion. If you have any new or worsening symptoms please retur
[2023-10-30 12:59] LABS: Strep Group A RT-PCR NOT DETECTED (Negative)
[2023-10-30 13:10] LABS: Influenza A QL RT-PCR Negative (Negative); Influenza B QL RT-PCR Negative (Negative); RSV RNA, RT-PCR Negative (Negative); SARS-CoV-2 RNA PCR Negative (Negative)
[2023-10-30 13:50] VITALS: BP 123/71; PULSE 76; RESP 17; TEMP 36.9; O2SAT 99
== END 2023-10-30 13:50 | disposition home or self-care (01) ==
PROVIDERS: Emergency Medicine; Emergency Provider Physician Assistant; PCP Registered Nurse
DX: B34.9 Viral infection, unspecified (principal); Z20.822 Contact with and (suspected) exposure to COVID-19
CPT/HCPCS: 71045; 87637; 87651; 93005; 99283

== ENCOUNTER 2023-11-02 17:02 | Emergency (ER) | payer OTHER, SELFPAY ==
[2023-11-02 17:11] VITALS: BP 131/72; PULSE 90; RESP 16; TEMP 37.6; O2SAT 100
--- NOTE | 2023-11-02 17:41 | ED.URI ---
HPI - URI/Sore Throat General Chief Complaint: Upper Respiratory Infection Stated Complaint: Sinus Source: patient and RN notes reviewed Mode of arrival: ambulatory Limitations: no limitations History of Present Illness HPI Narrative: 23-year-old male presented for complaint of sinus pressure congestion, sore throat, bilateral ear pressure, cough. Onset 4 days. He was seen the day after symptom onset, tested negative for viruses and strep, and had a negative chest x-ray. He currently denies shortness of breath, wheezing, nausea vomiting, diarrhea, fevers or chills. He has been taking Flonase spray and Advil cold and Sinus as recommended in the ER. Denies significant improvement in symptoms. He states he cannot smell. MD elicited complaint: cough Related Data Allergies Allergy/AdvReac Type Severity Reaction Status Date / Time peanut Allergy Hives Verified 11/02/23 17:14 Review of Systems Review of Systems: CONSTITUTIONAL: Endorses malaise, denies chills, sweats, fever EYES: Denies visual changes, redness, or discharge ENT: Reports rhinorrhea, congestion, sinus pain, otalgia, sore throat CARDIOVASCULAR: Denies chest pain, palpitations, edema RESPIRATORY: Reports cough, post nasal drainage. Denies dyspnea GASTROINTESTINAL: Denies abdominal pain, nausea, vomiting, diarrhea SKIN: Denies rash or itching MUSCULOSKELETAL: Denies myalgia Exam Narrative: GENERAL: mildly Ill-appearing, nontoxic no acute distress. EYES: PERRLA, conjunctivae clear ENT: Mucous membranes moist. nasal congestion noted. TMs erythematous, bulging and intact bilaterally; canals not erythematous, no drainage; no tragal tenderness. Oropharynx erythematous with tonsillar swelling 2+ and exudates no drooling, no hoarseness, no trismus, uvula midline. No tripod positioning, muffled voice, soft palate or pharyngeal wall bulging NECK: Supple. No lymphadenopathy CHEST: Clear to auscultation, breath sounds equal. No wheezing, rhonchi, rales, or stridor. No respiratory distress, speaks in full sentences. HEART: Regular rate and rhythm. No murmur heard. SKIN: Warm, dry, no rash. NEURO: Alert and oriented x3. PSYCH: Normal mood and affect Course Course Emergency Course: Patient is aware of diagnosis, understands and agrees to treatment plan. Anticipatory guidance given. Patient agrees to follow-up as directed and is aware of reasons to seek care at the emergency department. Portions of this record may have been created with voice recognition software Level of Care: Express Care Visit Vital Signs Vital signs: Vital Signs Temperature 99.6 F 11/02/23 17:11 Pulse Rate 90 11/02/23 17:11 Respiratory Rate 16 11/02/23 17:11 Blood Pressure 131/72 11/02/23 17:11 Pulse Oximetry 100 11/02/23 17:11 Oxygen Delivery Room Air 11/02/23 17:11 Temperature 99.6 F 11/02/23 17:11 Pulse Rate 90 11/02/23 17:11 Respiratory Rate 16 11/02/23 17:11 Blood Pressure 131/72 11/02/23 17:11 Pulse Oximetry 100 11/02/23 17:11 Oxygen Delivery Room Air 11/02/23 17:11 reviewed MDM - URI/Sore Throat MDM Narrative Medical decision making narrative: Negative flu and COVID. Will treat for strep and AOM based on PE and CC. Discussed physical exam findings. Advised supportive measures and signs/symptoms to go to the ER. Pt is appropriate for outpt treatment and f/u. Differential Diagnosis Differential diagnosis: Likely upper respiratory infection, sinusitis and viral infection Lab Data Labs: Lab Results 11/02/23 Range/Units 17:20 POC SARS CoV-2 Ag Negative (Negative) Influenza A Screen Negative Reference Range: Negative Influenza B Screen Negative Reference Range: Negative Discharge Plan Discharge Clinical Impression: Upper respiratory infection, Otitis media Patient Disposition
== END 2023-11-02 18:00 | disposition home or self-care (01) ==
PROVIDERS: Emergency Provider Nurse Practitioner Family; PCP Registered Nurse
DX: J06.9 Acute upper respiratory infection, unspecified (principal); H66.90 Otitis media, unspecified, unspecified ear; Z20.822 Contact with and (suspected) exposure to COVID-19
CPT/HCPCS: 87426; 87804; 99213; G0463

== ENCOUNTER 2023-11-24 21:33 | Emergency (ER) | payer OTHER, SELFPAY ==
[2023-11-24 21:43] VITALS: BP 146/85; PULSE 88; RESP 15; TEMP 36.6; O2SAT 99
[2023-11-24 22:43] VITALS: BP 148/99; PULSE 76; RESP 16; TEMP 36.4; O2SAT 99
--- NOTE | 2023-11-24 23:32 | ED.GENADULT ---
HPI - General Adult General Chief complaint: Wound/Laceration Stated complaint: L middle finger lac Time Seen by Provider: 11/24/23 23:26 History of Present Illness HPI narrative: Patient is a 23-year-old male who presents to the emergency department this evening complaining of left middle finger. Patient states he did not see a knife in the sink when accidentally brushing his left middle finger again to the top left middle finger missing his fingernail. Patient is unsure when his last tetanus shot. He currently denies any additional injuries and has no further concerns at this time. There are no other modifying, alleviating, or precipitating factors. Related Data Allergies Allergy/AdvReac Type Severity Reaction Status Date / Time peanut Allergy Hives Verified 11/02/23 17:14 Review of Systems Review of Systems: All systems are reviewed and are negative unless stated otherwise in the HPI. Exam Narrative: General: Alert, awake, afebrile, in no acute distress. HEENT: PERRL, no rhinorrhea, no post nasal drip, oropharynx clear. Neck: Trachea midline, no JVD, no lymphadenopathy. Cardiovascular: Regular rate and rhythm, no murmurs, rubs or gallops, no peripheral edema. Respiratory: Clear to auscultation bilaterally, no tachypnea, no wheezing, no rhonchi, no rubs, no respiratory distress. Abdomen: Soft, nontender, nondistended, no rebound, no guarding, no peritoneal signs. Musculoskeletal: 1.5 cm superficial linear laceration to the top of the left middle femur parallel to patient's nail horizontally. Patient is able to flex is minimal in the the joints and extend his own without any difficulty, sensation intact, patient is neurovascularly intact. No active bleeding. Skin: No rashes or petechia, no signs of infection. Psychiatric: Alert and oriented, normal behavior and judgment for situation. Neurological: Alert and oriented to person, place, and time. Follows all commands. No focal deficits, speech is clear and fluent. Course Vital Signs Vital signs: Vital Signs Temperature 98 F 11/24/23 21:43 Pulse Rate 88 11/24/23 21:43 Respiratory Rate 15 11/24/23 21:43 Blood Pressure 146/85 H 11/24/23 21:43 Pulse Oximetry 99 11/24/23 21:43 Oxygen Delivery Room Air 11/24/23 21:43 Temperature 97.5 F L 11/24/23 22:43 Pulse Rate 76 11/24/23 22:43 Respiratory Rate 16 11/24/23 22:43 Blood Pressure 148/99 H 11/24/23 22:43 Pulse Oximetry 99 11/24/23 22:43 Oxygen Delivery Room Air 11/24/23 21:43 Medical Decision Making MDM Narrative Medical decision making narrative: The patient was evaluated by myself in the emergency department. 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 External medical records were reviewed at this time. Patient was administered a tetanus shot. Patient's laceration was properly irrigated using sterile saline. wound is very superficial with no evidence of foreign bodies. Laceration was repaired using Dermabond. Comorbidities impacting this visit include none. I have evaluated and discussed social determinants of health with the patient that could potentially impact subsequent diagnosis and treatment plans. On repeat assessment of the patient, reevaluation revealed that the patient is doing well and is in no acute distress. Patient symptoms have improved since he arrived to our emergency department. Repeat vital signs were all reviewed and noted to be stable. Differential diagnosis and treatment plan were discussed with the patient at bedside. Patient agrees with discussion and after shared medical decision making agrees with discharge. All questions were answered to the patient's satisfaction. Patient will follow up with his PCP in 3-5 days. Patient was provided with strict return precautions and instructed to return to the emergency department if any new or worsening symptoms develop. The patient was discharged
[2023-11-24] MEDS: TETANUS,DIPHTHERIA,AC PERTUSSIS ADULT (0.5 ML) BOOSTRIX IM (23:42)
[2023-11-25 00:03] VITALS: BP 136/90; PULSE 79; RESP 15; O2SAT 100
== END 2023-11-25 00:04 | disposition home or self-care (01) ==
LOC: ANHED 23:47
PROVIDERS: Emergency Provider Emergency Medicine; PCP Registered Nurse
DX: S61.213A Laceration without foreign body of left middle finger without damage to nail, initial encounter (principal); Z23 Encounter for immunization; W26.0XXA Contact with knife, initial encounter
CPT/HCPCS: 12001; 90471; 90715; 99282

== ENCOUNTER 2023-11-29 15:33 | Emergency (ER) | payer OTHER, SELFPAY ==
[2023-11-29 15:42] VITALS: BP 138/78; PULSE 93; RESP 16; TEMP 36.7; O2SAT 98
--- NOTE | 2023-11-29 16:07 | ED.WOUNDLAC ---
HPI - Wound/Laceration General Chief Complaint: Skin/Abscess/Foreign Body Stated Complaint: left middle finger infected Time Seen by Provider: 11/29/23 15:57 Source: patient, RN notes reviewed and old records reviewed Mode of arrival: ambulatory Limitations: no limitations History of Present Illness HPI narrative: Patient presents today with an injury to his left 3rd finger. Five days ago he was seen in the ER after lacerating the tip of his finger with a kitchen knife home. Glue was applied and note states the wound was fairly superficial. Patient states he has been caring for the wound as directed, but reports concerns that it may be infected. Related Data Home Medications Medication Instructions Recorded Confirmed No Home Medications 11/29/23 11/29/23 Allergies Allergy/AdvReac Type Severity Reaction Status Date / Time peanut Allergy Hives Verified 11/02/23 17:14 Review of Systems Review of Systems: CONSTITUTIONAL: Denies body aches, fever, chills, or sweats. EYES: Denies visual changes, redness, or discharge. ENT: Denies rhinorrhea, congestion, sore throat, or otalgia. CARDIOVASCULAR: Denies chest pain, palpitations, or edema. RESPIRATORY: Denies cough or dyspnea. GASTROINTESTINAL: Denies abdominal pain, nausea, vomiting, or diarrhea. GENITOURINARY: Denies dysuria or hematuria. SKIN: + finger wound. MUSCULOSKELETAL: Denies back pain, joint pain, or myalgia. NEUROLOGIC: Denies headache, numbness, tingling, or weakness. PSYCH: Denies depression or anxiety. PMFSH Comments At time of signature, I have reviewed and agree with nursing past medical, surgical, social and family history unless otherwise noted. Please see nursing chart for further information. There is no relevant family history pertinent to the presenting complaint Exam Narrative: GENERAL: Well-appearing, well-nourished, and in no acute distress. HEAD: Normocephalic, atraumatic. EYES: EOMI. No redness or drainage. Conjunctivae normal. ENT: Mucous membranes pink and moist. NECK: Normal AROM. CHEST: No respiratory distress. EXTREMITIES: Normal range of motion. No edema. SKIN: Warm, dry, no rash. Capillary refill normal. Normal skin turgor. Left 3rd finger: Glue to the tip of the finger is barely adhered. After removal of the glue wound is fairly moist. No signs of infection such as erythema, edema, drainage. Dressed with Band-Aids NEURO: No focal deficits. Alert and oriented x3. Gait steady. PSYCH: Normal affect. No signs of depression or anxiety. Course Course Level of Care: Express Care Visit Vital Signs Vital signs: Vital Signs Temperature 98.1 F 11/29/23 15:42 Pulse Rate 93 11/29/23 15:42 Respiratory Rate 16 11/29/23 15:42 Blood Pressure 138/78 11/29/23 15:42 Pulse Oximetry 98 11/29/23 15:42 Oxygen Delivery Room Air 11/29/23 15:42 Temperature 98.1 F 11/29/23 15:42 Pulse Rate 93 11/29/23 15:42 Respiratory Rate 16 11/29/23 15:42 Blood Pressure 138/78 11/29/23 15:42 Pulse Oximetry 98 11/29/23 15:42 Oxygen Delivery Room Air 11/29/23 15:42 Reviewed MDM - Wound/Laceration MDM Narrative Medical decision making narrative: Glue removed and replaced with Band-Aids. Care instructions given. No prescription medications indicated at this time. Anticipatory guidance given. Differential Diagnosis Differential diagnosis: Likely laceration, abscess, abrasion, avulsion of skin and other (Cellulitis) Critical Care Time Critical Care Time Critical Care Time: No Discharge Plan Discharge Clinical Impression: Laceration of finger Qualifiers: Encounter type: subsequent encounter Finger: middle finger Damage to nail status: without damage Foreign body presence: without foreign body Laterality: left Qualified Code(s): S61.213D - Laceration without foreign body of left middle finger without damage to nail, subsequent encounter Patient Disposition: Home, Self-Care Cond
== END 2023-11-29 16:15 | disposition home or self-care (01) ==
PROVIDERS: Emergency Provider Nurse Practitioner; PCP Registered Nurse
DX: S61.213D Laceration without foreign body of left middle finger without damage to nail, subsequent encounter (principal); W26.0XXD Contact with knife, subsequent encounter
CPT/HCPCS: 99212; G0463

== ENCOUNTER 2024-07-05 07:04 | Emergency (ER) | payer SELFPAY ==
--- NOTE | ~2024-07-05 | XR_ITS ---
EXAMINATION: XR chest 2V DATE: 07/05/2024 07:45 INDICATION: Chest pain. Dizziness, cough. TECHNIQUE: Frontal and lateral views of the chest were obtained. COMPARISON: Chest single view 10/30/2023, CT abdomen and pelvis 07/24/2022 FINDINGS: There is no pneumonia, pleural effusion, or pneumothorax. The heart size is normal. IMPRESSION: 1. No acute cardiopulmonary disease. 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
--- NOTE | 2024-07-05 07:07 | ECG_ITS ---
Test Date: 2024-07-05 07:14:16 Measurements Intervals [place] Rate: 64 P: 53 [place]: 176 QRS: 45 QRSD: 99 T: 41 QT: 369 QTc: 381 Interpretive Statements SINUS RHYTHM DELAYED PRECORDIAL R/S TRANSITION BASELINE ARTIFACT- I, III BORDERLINE ECG No previous ECG available for comparison Electronically Signed On 07-05-2024 08:06:09 GROUT MACHINE TENDER by Vivek Cisneros D.O.
[2024-07-05 07:08] VITALS: BP 142/82; PULSE 101; RESP 16; TEMP 36.4; O2SAT 99
[2024-07-05] MEDS: ASPIRIN 81 MG CHEWABLE TABLET 324 MG PO (07:48)
[2024-07-05 07:51] VITALS: O2SAT 99
[2024-07-05 07:54] VITALS: BP 135/88; PULSE 67; PULSE 69; RESP 17; O2SAT 99
[2024-07-05 08:02] LABS: Basophils Percent Auto 0.6 % (0.2-1.2); Eosinophils Absolute Auto 0.2 K/mm3 (0-0.3); Eosinophils Percent Auto 2.4 % (0-4.4); Hematocrit 44.6 % (42.0-52.0); Hemoglobin 15.5 g/dL (14.0-18.0); Immature Granulocyte Absolute 0.01 K/mm3 (0.00-0.031); Immature Granulocyte Percent A 0.2 % (0-0.5); Lymphocytes Absolute Auto 1.66 K/mm3 (0.9-3.2); Lymphocytes Percent Auto 26.3 % (18.3-44.2); Mean Corpuscular HGB Conc 34.8 g/dl (32-36); Mean Corpuscular Hemoglobin 31.4 pg (26-34); Mean Corpuscular Volume 90.5 fl (80-100); Mean Platelet Volume 9.8 fl (7.4-10.4); Monocytes Absolute Auto 0.5 K/mm3 (0.1-0.6); Monocytes Percent Auto 8.1 % (2.6-8.5); Neutrophils Percent Auto 62.4 % (45.5-73.1); Platelet Count Result 240 k/mm3 (150-375); Red Blood Count 4.93 M/mm3 (4.6-6.20); Red Cell Distribution Width 11.3 % (11.5-14.5); White Blood Count 6.3 K/mm3 (4.5-10.0)
--- NOTE | 2024-07-05 08:13 | ED_ITS ---
HPI - General Adult General Chief complaint: Chest Pain Stated complaint: sharp cp after 3 days of URI Time Seen by Provider: 07/05/24 07:49 History of Present Illness HPI narrative: 24-year-old male presents to the emergency department for evaluation for cough congestion and chest and back pain. patient states he did borrow a co-worker's vape then after using the vape she told them that she was sick. Patient then began developing upper respiratory symptoms. Patient states that he is having intermittent chest pain with coughing. patient also does complain of generalized body aches and fatigue. Related Data Allergies Allergy/AdvReac Type Severity Reaction Status Date / Time peanut Allergy Hives Verified 07/05/24 07:05 Review of Systems Review of Systems: All systems reviewed & are unremarkable except as noted in HPI and below Exam Narrative: APPEARANCE: Well appearing, no pain, no distress, well-nourished. HEAD: normocephalic, atraumatic. EYES: PERRLA/EOMI, conjunctivae clear. NOSE: Normal no drainage EARS:TMS clear with good light reflex. THROAT: Pharynx clear, no exudate. NECK: Supple. No adenopathy, no masses. RESPIRATORY: Airway patent, respirations nonlabored. Clear to auscultation bilaterally, no rales, rhonchi, wheezing. CARDIOVASCULAR: Regular rate and rhythm without murmurs rubs or gallops. ABDOMINAL: Soft, nontender, nondistended, normal bowel sounds MUSCULOSKELETAL: Moves all extremities. Strength/ROM intact, No edema, No calf tenderness. NEURO: Alert. Cranial nerves II through XII intact. Good gait. Good coordination SKIN: Warm, dry. Normal Color Course Vital Signs Vital signs: Vital Signs Temperature 97.6 F 07/05/24 07:08 Pulse Rate 101 H 07/05/24 07:08 Respiratory Rate 16 07/05/24 07:08 Blood Pressure 142/82 H 07/05/24 07:08 Pulse Oximetry 99 07/05/24 07:08 Temperature 97.5 F L 07/05/24 09:08 Pulse Rate 96 07/05/24 09:08 Respiratory Rate 13 07/05/24 09:08 Blood Pressure 125/81 07/05/24 09:08 Pulse Oximetry 97 07/05/24 09:08 Oxygen Delivery Room Air 07/05/24 07:51 Medical Decision Making MDM Narrative Medical decision making narrative: 24-year-old male presents emergency department for evaluation for upper respiratory symptoms cough and congestion. Patient is afebrile with no leukocytosis and hemoglobin of 15.5. Patient has no acute abnormalities on his CMP patient was positive for COVID. chest x-ray shows no acute cardiopulmonary abnormality. Patient was updated the results of his workup was complete the plan for discharge and close follow-up. Patient was advised to quit smoking, q uit vaping and patient was provided albuterol inhaler with spacer and Tessalon Perles for cough suppression. Differential Diagnosis Differential Diagnosis: COVID, influenza, RSV, pneumonia, bronchitis, pneumonitis Vital Signs Vital Signs: Vital Signs Temperature 97.6 F 07/05/24 07:08 Pulse Rate 101 H 07/05/24 07:08 Respiratory Rate 16 07/05/24 07:08 Blood Pressure 142/82 H 07/05/24 07:08 Pulse Oximetry 99 07/05/24 07:08 Temperature 97.5 F L 07/05/24 09:08 Pulse Rate 96 07/05/24 09:08 Respiratory Rate 13 07/05/24 09:08 Blood Pressure 125/81 07/05/24 09:08 Pulse Oximetry 97 07/05/24 09:08 Oxygen Delivery Room Air 07/05/24 07:51 Lab Data Lab results reviewed: Yes I reviewed the patient's lab results. 07/05/24 07:56 07/05/24 07:56 Labs: Lab Results 07/05/24 07/05/24 Range/Units 07:56 08:01 WBC 6.3 (4.5-10.0) K/mm3 RBC 4.93 (4.6-6.20) M/mm3 Hgb 15.5 (14.0-18.0) g/dL Hct 44.6 (42.0-52.0) % MCV 90.5 (80-100) fl MCH 31.4 (26-34) pg MCHC 34.8 (32-36) g/dl RDW 11.3 L (11.5-14.5) % Plt Count 240 (150-375) k/mm3 MPV 9.8 (7.4-10.4) fl Immature Gran % (Auto) 0.2 (0-0.5) % Neut % (Auto) 62.4 (45.5-73.1) % Lymph % (Auto) 26.3 (18.3-44.2) % [place] % (Auto) 8.1 (2.6-8.5) % Eos % (Auto) 2.4 (0-4.4) % Baso % (Auto) 0.6 (0.2-1.2) % Lymph # (Auto) 1.66 (0.9-3.2) K/mm3 [place] # (Auto) 0.5 (0.1-0.6) K/mm3 Eos # (Auto) 0.2 (0-0.3) K/mm3 Baso # (Auto) 0.0 (0.0-0.1) K/mm3 Abs Immat Gran (auto) 0.01 (0.00-0.031) K/mm3 Absolute Neuts (auto) 4.0 (1.3-6.7) K/mm3 Absolute Nucleated RBC 0.000 (0.0-0.012) K/mm3 Nucleated RBC % 0.0 (0.0-0.2) % PT 12.9 (11.1-14.7) Seconds INR 0.9 APTT 26.2 (22.3-36.8) Seconds Sodium 138 (137-145) mmol/L Potassium 3.8 (3.4-5.0) mmol/L Chloride 102 (98-107) mmol/L Carbon Dioxide 27 (22-30) mmol/L Anion Gap 9 (4-12) mmol/L BUN 18 (9-20) mg/dL Creatinine 0.90 (0.7-1.3) mg/dL Estim Creat Clear Calc 155 ml/min Estimated GFR > 60 (59 - ) Glucose 125 H (65-110) mg/dL Calcium 9.4 (8.4-10.2) mg/dL Total Bilirubin 1.0 (0.2-1.3) mg/dL AST 55 (17-59) U/L ALT 77 H (6-50) U/L Alkaline Phosphatase 57 (38-126) U/L Troponin I < 0.012 (0.000-0.034) ng/mL Total Protein 8.0 (6.3-8.2) g/dL Albumin 4.5 (3.5-5.1) g/dL Lipase 79 (23-300) U/L Influenza A (RT-PCR) Negative (Negative) Influenza B (RT-PCR) Negative (Negative) RSV (RT-PCR) Negative (Negative) SARS-CoV-2 RNA (RT-PCR) Positive A (Negative) Imaging Data Radiologist's impression: Impressions Chest X-Ray 07/05/24 07:54 IMPRESSION: 1. No acute cardiopulmonary disease. Discharge Plan Discharge Clinical Impression: COVID Patient Disposition: Home, Self-Care Condition: Stable Instructions: Antibiotic Form, COVID-19 (Coronavirus Disease 2019) (ED) Additional Instructions: Tylenol and ibuprofen for fever and for body aches. Albuterol for shortness of breath and Tessalon Perles for cough. Have close follow-up with your primary care physician. Prescriptions: New albuterol sulfate 90 mcg/actuation HFA aerosol inhaler 1 puff inhalation QID PRN (Reason: shortness of breath or wheezing) Qty: 6.7 0RF benzonatate 100 mg capsule 100 mg PO TID PRN (Reason: cough) Qty: 14 0RF Follow-up/Referrals: Allison,CLAY Montanez [Primary Care Provider] -
[2024-07-05 08:39] LABS: Partial Thromboplastin Time 26.2 Seconds (22.3-36.8)
[2024-07-05 08:41] LABS: Influenza A QL RT-PCR Negative (Negative); Influenza B QL RT-PCR Negative (Negative); RSV RNA, RT-PCR Negative (Negative); SARS-CoV-2 RNA PCR Positive (Negative)
[2024-07-05 08:42] LABS: INR 0.9; Prothrombin Time 12.9 Seconds (11.1-14.7)
[2024-07-05 09:08] VITALS: BP 125/81; PULSE 96; RESP 13; TEMP 36.4; O2SAT 97
[2024-07-05 12:21] LABS: Alanine Aminotransferase 77 U/L (6-50); Albumin Level 4.5 g/dL (3.5-5.1); Alkaline Phosphatase 57 U/L (38-126); Anion Gap 9 mmol/L (4-12); Aspartate Amino Transferase 55 U/L (17-59); Blood Urea Nitrogen 18 mg/dL (9-20); Calcium 9.4 mg/dL (8.4-10.2); Carbon Dioxide 27 mmol/L (22-30); Chloride 102 mmol/L (98-107); Estimated CRCL calculation 155 ml/min; Estimated Glomerular Filt Rate > 60; Glucose 125 mg/dL (65-110); Lipase 79 U/L (23-300); Potassium 3.8 mmol/L (3.4-5.0); Sodium 138 mmol/L (137-145)
[2024-07-05 12:33] LABS: Troponin I < 0.012 ng/mL (0.000-0.034)
== END 2024-07-05 09:10 | disposition home or self-care (01) ==
PROVIDERS: Emergency Provider Emergency Medicine; PCP Registered Nurse
DX: U07.1 COVID-19 (principal); R94.31 Abnormal electrocardiogram [ECG] [EKG]
CPT/HCPCS: 36415; 71046; 80053; 83690; 84484; 85025; 85610; 85730; 87637; 93005; 99284; A9270

== ENCOUNTER 2024-09-30 02:45 | Emergency (ER) | payer BC, SELFPAY ==
--- NOTE | ~2024-09-30 | XR_ITS ---
EXAMINATION: XR chest 1V portable DATE: 09/30/2024 03:05 INDICATION: Chest pain. TECHNIQUE: A single frontal view of the chest was obtained. COMPARISON: Chest 2 views 07/05/2024, CT abdomen and pelvis 07/24/2022 FINDINGS: The lung volumes are small. No pneumonia, pleural effusion, or pneumothorax. The heart size is normal. IMPRESSION: 1. Small lung volumes. Reviewed, dictated and finalized at location A. MANAGER IMPRESSION: 1. Small lung volumes.
--- NOTE | 2024-09-30 02:47 | ECG_ITS ---
Test Date: 2024-09-30 02:55:52 Measurements Intervals [place] Rate: 73 P: 49 GA: 181 QRS: 27 QRSD: 98 T: 17 QT: 336 QTc: 373 Interpretive Statements SINUS RHYTHM WITH SINUS ARRHYTHMIA BORDERLINE R WAVE PROGRESSION, ANTERIOR LEADS CONSIDER INFERIOR INFARCT, AGE INDETERMINATE BASELINE ARTIFACT- I, III, AVR, AVL, AVF ABNORMAL ECG Compared to ECG 07/05/2024 07:14:16 No significant changes Electronically Signed On 09-30-2024 06:35:43 GAS PUMPER by Vivek Cisneros D.O.
--- OUTSIDE RECORDS SUMMARY | 2024-09-30 02:47 | XMS_ITS | Continuity of Care Document ---
Author Organization [facility] Address [address] [place] [address] Phone Care Team Providers Care Teacher Asst Name Role Phone Unavailable Unavailable Unavailable Advance Directives Directive Yes / No Effective Date File Name No Information Encounters Encounter Description Practice Location Reason(s) For Visit Diagnoses Date Provider Providers Copied on Encounter [facility], [address] [facility] [address], [place], [address], [place] tel:[phone] [facility] OFFICE No Information 9 No Information Referring Provider: FEMI PEACOCK, [address] [place] [address], [id number]. Family History Family Member Type Diagnosis Age At Onset No Information Payers Payer name Insurance type Covered republican ID Authorletty moore(s) [employer] [place] BLUE CARD PPO [id number] Social History Type Description Quantity Date Captured Comments Sex Male Smoking Status No Information Chief Complaint And Reason For Visit No Information History Of Present Illness Encounter Date Complaint History Of Prese nt Illness No Information Instructions Date Instruction Additional Infor mation No Information Assessments Type Assessment Date No Information
[2024-09-30 02:50] VITALS: BP 150/89; PULSE 87; RESP 22; TEMP 36.3; O2SAT 97
[2024-09-30 02:55] VITALS: BP 150/89; PULSE 85; RESP 18; O2SAT 95
[2024-09-30 03:03] LABS: Basophils Percent Auto 0.8 % (0.2-1.2); Eosinophils Absolute Auto 0.1 K/mm3 (0-0.3); Eosinophils Percent Auto 1.8 % (0-4.4); Hemoglobin 15.2 g/dL (14.0-18.0); Immature Granulocyte Absolute 0.02 K/mm3 (0.00-0.031); Immature Granulocyte Percent A 0.4 % (0-0.5); Lymphocytes Absolute Auto 1.63 K/mm3 (0.9-3.2); Lymphocytes Percent Auto 32.9 % (18.3-44.2); Mean Corpuscular HGB Conc 35.3 g/dl (32-36); Mean Corpuscular Hemoglobin 31.5 pg (26-34); Mean Corpuscular Volume 89.2 fl (80-100); Mean Platelet Volume 10.2 fl (7.4-10.4); Monocytes Absolute Auto 0.5 K/mm3 (0.1-0.6); Monocytes Percent Auto 9.3 % (2.6-8.5); Neutrophils Absolute Auto 2.7 K/mm3 (1.3-6.7); Neutrophils Percent Auto 54.8 % (45.5-73.1); Platelet Count Result 246 k/mm3 (150-375); Red Blood Count 4.82 M/mm3 (4.6-6.20); Red Cell Distribution Width 11.4 % (11.5-14.5)
[2024-09-30 03:14] LABS: INR 0.9; Prothrombin Time 12.6 Seconds (11.1-14.7)
[2024-09-30 03:15] LABS: Sodium 141 mmol/L (137-145)
[2024-09-30 03:21] LABS: Alanine Aminotransferase 98 U/L (6-50); Albumin Level 4.5 g/dL (3.5-5.1); Alkaline Phosphatase 65 U/L (38-126); Anion Gap 11 mmol/L (4-12); Aspartate Amino Transferase 58 U/L (17-59); Bilirubin,Total 0.8 mg/dL (0.2-1.3); Blood Urea Nitrogen 22 mg/dL (9-20); Calcium 9.6 mg/dL (8.4-10.2); Carbon Dioxide 26 mmol/L (22-30); Chloride 104 mmol/L (98-107); Estimated CRCL calculation 139 ml/min; Estimated Glomerular Filt Rate > 60; Glucose 107 mg/dL (65-110); Lipase 97 U/L (23-300); Potassium 4.1 mmol/L (3.4-5.0)
[2024-09-30 03:28] LABS: Troponin I < 0.012 ng/mL (0.000-0.034)
[2024-09-30 03:30] VITALS: BP 130/85; PULSE 81; RESP 26; O2SAT 95
[2024-09-30 04:45] VITALS: BP 136/83; PULSE 73; RESP 23; O2SAT 96
--- NOTE | 2024-09-30 05:24 | ED_ITS ---
HPI - General Adult General Chief complaint: Shortness of Breath/Dyspnea Stated complaint: chest pain with inspiration and sob Time Seen by Provider: 09/30/24 05:24 History of Present Illness HPI narrative: This is a 24-year-old male presenting ED with chief complaint of chest pain. The pain is sharp, intermittent, located center his chest, nonpositional, not associated with exertion. Patient has been having this chest pain intermittently over the last 3 months. Patient says it started when he 1st stop smoking. He also says that it is more common when he is under significant stress like when he is at work. Patient says he had cold symptoms 2 weeks ago. Has not taken anything for pain control. Patient denies fevers chills productive cough body aches headache abdominal pain urinary symptoms or lower extremity edema. Related Data Allergies Allergy/AdvReac Type Severity Reaction Status Date / Time peanut Allergy Hives Verified 09/30/24 03:24 Exam 2 Narrative: APPEARANCE: No apparent distress. Head: atraumatic. EYES: EOMI, NOSE: Atraumatic NECK: Trachea midline RESPIRATORY: No increased rate of breathing clear to auscultation CARDIOVASCULAR: RRR, no peripheral edema ABDOMINAL: Non-distended soft nontender MUSCULOSKELETAl: No obvious deformities NEURO: Alert. Moving 4/4 extremities SKIN:: Warm, dry. Normal color PSYCHIATRIC: Normal affect Course Vital Signs Vital signs: Vital Signs Temperature 97.4 F L 09/30/24 02:50 Pulse Rate 87 09/30/24 02:50 Respiratory Rate 22 H 09/30/24 02:50 Blood Pressure 150/89 H 09/30/24 02:50 Pulse Oximetry 97 09/30/24 02:50 Oxygen Delivery Room Air 09/30/24 02:50 Temperature 97.4 F L 09/30/24 02:50 Pulse Rate 87 09/30/24 02:50 Respiratory Rate 22 H 09/30/24 02:50 Blood Pressure 150/89 H 09/30/24 02:50 Pulse Oximetry 97 09/30/24 02:50 Oxygen Delivery Room Air 09/30/24 02:50 Medical Decision Making [facility] Narrative Medical decision making narrative: -Course: 24-year-old male presenting with pleuritic chest pain. Workup including troponins, EKG and chest x-ray were negative. Patient is PERC negative. Vital signs are stable the patient is well-appearing on exam. Pain may be due to pleurisy or possibly anxiety but I can detect no life-threatening causes of chest pain at this time. I think is safe for follow-up with primary care physician. Patient discharged with return precautions. -DDX includes but is not limited to: Pleurisy, pericarditis, ACS, pneumonia, pneumothorax, PE Vital Signs Vital Signs: Vital Signs Temperature 97.4 F L 09/30/24 02:50 Pulse Rate 87 09/30/24 02:50 Respiratory Rate 22 H 09/30/24 02:50 Blood Pressure 150/89 H 09/30/24 02:50 Pulse Oximetry 97 09/30/24 02:50 Oxygen Delivery Room Air 09/30/24 02:50 Temperature 97.4 F L 09/30/24 02:50 Pulse Rate 87 09/30/24 02:50 Respiratory Rate 22 H 09/30/24 02:50 Blood Pressure 150/89 H 09/30/24 02:50 Pulse Oximetry 97 09/30/24 02:50 Oxygen Delivery Room Air 09/30/24 02:50 Lab Data 09/30/24 02:58 09/30/24 02:58 Labs: Lab Results 09/30/24 Range/Units 02:58 WBC 5.0 (4.5-10.0) K/mm3 RBC 4.82 (4.6-6.20) M/mm3 Hgb 15.2 (14.0-18.0) g/dL Hct 43.0 (42.0-52.0) % MCV 89.2 (80-100) fl MCH 31.5 (26-34) pg MCHC 35.3 (32-36) g/dl RDW 11.4 L (11.5-14.5) % Plt Count 246 (150-375) k/mm3 MPV 10.2 (7.4-10.4) fl Immature Gran % (Auto) 0.4 (0-0.5) % Neut % (Auto) 54.8 (45.5-73.1) % Lymph % (Auto) 32.9 (18.3-44.2) % [place] % (Auto) 9.3 H (2.6-8.5) % Eos % (Auto) 1.8 (0-4.4) % Baso % (Auto) 0.8 (0.2-1.2) % Lymph # (Auto) 1.63 (0.9-3.2) K/mm3 [place] # (Auto) 0.5 (0.1-0.6) K/mm3 Eos # (Auto) 0.1 (0-0.3) K/mm3 Baso # (Auto) 0.0 (0.0-0.1) K/mm3 Abs Immat Gran (auto) 0.02 (0.00-0.031) K/mm3 Absolute Neuts (auto) 2.7 (1.3-6.7) K/mm3 Absolute Nucleated RBC 0.000 (0.0-0.012) K/mm3 Nucleated RBC % 0.0 (0.0-0.2) % PT 12.6 (11.1-14.7) Seconds INR 0.9 APTT 26.0 (22.3-36.8) Seconds Sodium 141 (137-145) mmol/L Potassium 4.1 (3.4-5.0) mmol/L Chloride 104 (98-107) mmol/L Carbon Dioxide 26 (22-30) mmol/L Anion Gap 11 (4-12) mmol/L BUN 22 H (9-20) mg/dL Creatinine 1.03 (0.7-1.3) mg/dL Estim Creat Clear Calc 139 ml/min Estimated GFR > 60 (59 - ) Glucose 107 (65-110) mg/dL Calcium 9.6 (8.4-10.2) mg/dL Total Bilirubin 0.8 (0.2-1.3) mg/dL AST 58 (17-59) U/L ALT 98 H (6-50) U/L Alkaline Phosphatase 65 (38-126) U/L Troponin I < 0.012 (0.000-0.034) ng/mL Total Protein 8.0 (6.3-8.2) g/dL Albumin 4.5 (3.5-5.1) g/dL Lipase 97 (23-300) U/L Discharge Plan Discharge Clinical Impression: Atypical chest pain Patient Disposition: Home, Self-Care Condition: Stable Instructions: Antibiotic Form Additional Instructions: You were seen in the emergency department for chest pain. Please try Motrin Tylenol for pain. Please follow-up with your primary care physician for further management. If you develop any new or worsening symptoms he can return to the ED for re-evaluation. Patient Language: Citizen Of [place] Prescriptions: No Action albuterol sulfate 90 mcg/actuation HFA aerosol inhaler 1 puff inhalation QID PRN (Reason: shortness of breath or wheezing) Qty: 6.7 0RF benzonatate 100 mg capsule 100 mg PO TID PRN (Reason: cough) Qty: 14 0RF Follow-up/Referrals: Allison,Lisseth, WHEEL CLEANER [Primary Care Provider] -
[2024-09-30 05:30] VITALS: BP 143/91; PULSE 77; RESP 19; O2SAT 96
[2024-09-30 05:35] VITALS: PULSE 71; O2SAT 100
--- OUTSIDE RECORDS SUMMARY | 2024-09-30 05:45 | XMS_ITS | Continuity of Care Document ---
Author Organization [facility] Address [address] [place] [address] Phone Care Team Providers Care Glass Cutting Machine Operator Name Role Phone Unavailable Unavailable Unavailable Advance Directives Directive Yes / No Effective Date File Name No Information Encounters Encounter Description Practice Location Reason(s) For Visit Diagnoses Date Provider Providers Copied on Encounter [facility], [address] [facility] [address], [place], [address], [place] tel:[phone] [facility] OFFICE No Information 9 No Information Referring Provider: FEMI PEACOCK, [address] [place] [address], [id number]. Family History Family Member Type Diagnosis Age At Onset No Information Payers Payer name Insurance type Covered green party ID Authorletty moore(s) [employer] [place] BLUE CARD P[place] [id number] Social History Type Description Quantity Date Captured Comments Sex Male Smoking Status No Information Chief Complaint And Reason For Visit No Information History Of Present Illness Encounter Date Complaint History Of Prese nt Illness No Information Instructions Date Instruction Additional Infor mation No Information Assessments Type Assessment Date No Information
[2024-09-30] MEDS: KETOROLAC 15 MG/ML VIAL (*BKC) IV PUSH (05:52)
== END 2024-09-30 05:59 | disposition home or self-care (01) ==
LOC: ANHED 05:44
PROVIDERS: Emergency Provider Emergency Medicine; PCP Registered Nurse
DX: R07.89 Other chest pain (principal); R94.31 Abnormal electrocardiogram [ECG] [EKG]
CPT/HCPCS: 36415; 71045; 80053; 83690; 84484; 85025; 85610; 85730; 93005; 96374; 99284; J1885

== ENCOUNTER 2024-12-03 01:34 | Emergency (ER) | payer OTHER, BC, SELFPAY ==
--- OUTSIDE RECORDS SUMMARY | 2024-12-03 01:36 | XMS_ITS | Continuity of Care Document ---
Author Organization [facility] Address [address] [place] [address] Phone Care Team Providers Care Global Project Manager Name Role Phone Unavailable Unavailable Unavailable Advance Directives Directive Yes / No Effective Date File Name No Information Encounters Encounter Description Practice Location Reason(s) For Visit Diagnoses Date Provider Providers Copied on Encounter [facility], [address] [facility] [address], [place], [address], [place] tel:[phone] [facility] OFFICE No Information 9 No Information Referring Provider: FEMI PEACOCK, [address] [place] [address], [id number]. Family History Family Member Type Diagnosis Age At Onset No Information Payers Payer name Insurance type Covered alliance party ID Authorletty moore(s) [employer] [place] BLUE CARD PPO [id number] Social History Type Description Quantity Date Captured Comments Sex Male Smoking Status No Information Chief Complaint And Reason For Visit No Information History Of Present Illness Encounter Date Complaint History Of Prese nt Illness No Information Instructions Date Instruction Additional Infor mation No Information Assessments Type Assessment Date No Information
[2024-12-03 01:53] VITALS: BP 125/93; PULSE 87; RESP 16; TEMP 36.7; O2SAT 98
--- NOTE | 2024-12-03 02:10 | ED.GENADULT ---
HPI - General Adult General Chief complaint: Wound/Laceration Stated complaint: tiny laceration to finger Time Seen by Provider: 12/03/24 02:04 History of Present Illness HPI narrative: Patient is a 24-year-old gentleman who presents emergency department chief complaint of abrasion to the right pinky finger the patient reports that he was at work and was putting his hand against the wall in a piece of metal scraped his finger when he slid his hand down the wall the patient states that it harry whenever he moves his finger the patient reports he is left-hand dominant reports that his tetanus is up-to-date patient stated that he decided to come to the emergency department to have the wound checked just to make sure he did not need sutures Related Data Allergies Allergy/AdvReac Type Severity Reaction Status Date / Time peanut Allergy Hives Verified 12/03/24 01:35 Review of Systems Review of Systems: A 10 system review of systems was completed on the patient and is negative except for what is stated in the HPI. Nursing and ancillary documentation was reviewed. Exam Narrative: GENERAL: Well-appearing, well-nourished, and in no acute distress. HEAD: Normocephalic, atraumatic. EYES: PERRLA and EOMI. ENT: Nares clear, no rhinorrhea or epistaxis. Mucous membranes moist. NECK: Supple. CHEST: Clear to auscultation. No respiratory distress. HEART: Regular rate and rhythm. No murmur heard. Normal peripheral pulses. ABDOMEN: Soft, nontender, nondistended, normal active bowel sounds. EXTREMITIES: Normal range of motion. No edema. SKIN: Warm, dry, no rash. Small superficial abrasion present to the volar aspect of the right 5th digit NEURO: No focal deficits. Alert and oriented x3. PSYCH: Normal mood and affect. Course Vital Signs Vital signs: Vital Signs Temperature 36.7 C 12/03/24 01:53 Pulse Rate 87 12/03/24 01:53 Respiratory Rate 16 12/03/24 01:53 Blood Pressure 125/93 H 12/03/24 01:53 Pulse Oximetry 98 12/03/24 01:53 Oxygen Delivery Room Air 12/03/24 01:53 Temperature 36.7 C 12/03/24 01:53 Pulse Rate 87 12/03/24 01:53 Respiratory Rate 16 12/03/24 01:53 Blood Pressure 125/93 H 12/03/24 01:53 Pulse Oximetry 98 12/03/24 01:53 Oxygen Delivery Room Air 12/03/24 01:53 Medical Decision Making MDM Narrative Medical decision making narrative: The patient's wound is superficial not even to the subcu tissue is non gaping and does not require suture closing Vital Signs Vital Signs: Vital Signs Temperature 36.7 C 12/03/24 01:53 Pulse Rate 87 12/03/24 01:53 Respiratory Rate 16 12/03/24 01:53 Blood Pressure 125/93 H 12/03/24 01:53 Pulse Oximetry 98 12/03/24 01:53 Oxygen Delivery Room Air 12/03/24 01:53 Temperature 36.7 C 12/03/24 01:53 Pulse Rate 87 12/03/24 01:53 Respiratory Rate 16 12/03/24 01:53 Blood Pressure 125/93 H 12/03/24 01:53 Pulse Oximetry 98 12/03/24 01:53 Oxygen Delivery Room Air 12/03/24 01:53 Discharge Plan Discharge Clinical Impression: Abrasion Patient Disposition: Home Condition: Stable Instructions: Antibiotic Form, Abrasion (ED) Patient Language: Belarusian Prescriptions: No Action albuterol sulfate 90 mcg/actuation HFA aerosol inhaler 1 puff inhalation QID PRN (Reason: shortness of breath or wheezing) Qty: 6.7 0RF benzonatate 100 mg capsule 100 mg PO TID PRN (Reason: cough) Qty: 14 0RF Follow-up/Referrals: Allison,CLAY Montanez [Primary Care Provider] - Time of Disposition: :
--- OUTSIDE RECORDS SUMMARY | 2024-12-03 02:13 | XMS_ITS | Continuity of Care Document ---
Author Organization [facility] Address [address] [place] [address] Phone Care Team Providers Care Bobbin Doffer Name Role Phone Unavailable Unavailable Unavailable Advance Directives Directive Yes / No Effective Date File Name No Information Encounters Encounter Description Practice Location Reason(s) For Visit Diagnoses Date Provider Providers Copied on Encounter [facility], [address] [facility] [address], [place], [address], [place] tel:[phone] [facility] OFFICE No Information 9 No Information Referring Provider: FEMI PEACOCK, [address] [place] [address], [address]. Family History Family Member Type Diagnosis Age At Onset No Information Payers Payer name Insurance type Covered alliance party ID Authorletty moore(s) [employer] [place] BLUE CARD PPO [id number] Social History Type Description Quantity Date Captured Comments Sex Male Smoking Status No Information Chief Complaint And Reason For Visit No Information History Of Present Illness Encounter Date Complaint History Of Prese nt Illness No Information Instructions Date Instruction Additional Infor mation No Information Assessments Type Assessment Date No Information
== END 2024-12-03 02:21 | disposition home or self-care (01) ==
PROVIDERS: Emergency Provider Emergency Medicine; PCP Registered Nurse
DX: S60.416A Abrasion of right little finger, initial encounter (principal); W26.8XXA Contact with other sharp object(s), not elsewhere classified, initial encounter
CPT/HCPCS: 99282

== ENCOUNTER 2025-01-08 02:26 | Emergency (ER) | payer BC, SELFPAY ==
--- NOTE | ~2025-01-08 | XR_ITS ---
XR knee LT 3V Ordering provider: Katie Landa History: . L knee pain . Comparison: None. FINDINGS: BONES: No acute fracture or dislocation. JOINT SPACES: Normal. SOFT TISSUES: Normal. IMPRESSION: No acute osseous abnormality left knee. Reviewed, dictated and finalized at location A.
[2025-01-08 02:27] VITALS: BP 172/87; PULSE 105; RESP 17; TEMP 36.6; O2SAT 97
--- OUTSIDE RECORDS SUMMARY | 2025-01-08 02:28 | XMS_ITS | Continuity of Care Document ---
Author Organization [facility] Address [address] [place] [address] Phone Care Team Providers Care Pilot Highway Patrol Name Role Phone Unavailable Unavailable Unavailable Advance Directives Directive Yes / No Effective Date File Name No Information Encounters Encounter Description Practice Location Reason(s) For Visit Diagnoses Date Provider Providers Copied on Encounter [facility], [address] [facility] [address], [place], [address], [place] tel:[phone] [facility] OFFICE No Information 9 No Information Referring Provider: FEMI PEACOCK, [address] [place] [address], [address]. Family History Family Member Type Diagnosis Age At Onset No Information Payers Payer name Insurance type Covered constitution party ID Authorletty moore(s) [employer] BLUE CARD PPO [id number] Social History Type Description Quantity Date Captured Comments Sex Male Smoking Status No Information Chief Complaint And Reason For Visit No Information History Of Present Illness Encounter Date Complaint History Of Prese nt Illness No Information Instructions Date Instruction Additional Infor mation No Information Assessments Type Assessment Date No Information
--- NOTE | 2025-01-08 04:20 | ED.EXTPRO ---
HPI - Extremity Problem General Chief complaint: Extremity Problem,Nontraumatic Stated complaint: left knee pain Time Seen by Provider: 01/08/25 04:06 History of Present Illness HPI Narrative: Patient presents with pain to his left knee, he is on his feet a lot at work and thinks that his shoes may not be good and that is why he has been having pain that goes from his knee down his leg. No recent trauma Related Data Allergies Allergy/AdvReac Type Severity Reaction Status Date / Time peanut Allergy Hives Verified 01/08/25 02:27 Review of Systems Review of Systems: All systems reviewed & are unremarkable except as noted in HPI and below Exam Narrative: EXAMINATION OF ORGAN SYSTEMS/BODY AREAS: Constitutional: Vital signs per nursing GENERAL:[No acute distress, non-toxic appearing.] HEAD: Normal with no signs of head trauma. EYES: EOMI, conjunctiva normal ENT: Hearing grossly intact LUNGS: Nonlabored breathing. HEART: [Regular rate and rhythm] ABD: [Soft], [nontender to palpation] EXT: Normal range of motion SKIN: [No rashes or lesions.] NEURO: [Alert and oriented x 3. No gross focal sensory or strength deficits.] Able to ambulate. PSYCH: Normal affect Course Vital Signs Vital signs: Vital Signs Temperature 97.9 F 01/08/25 02:27 Pulse Rate 105 H 01/08/25 02:27 Respiratory Rate 17 01/08/25 02:27 Blood Pressure 172/87 H 01/08/25 02:27 Pulse Oximetry 97 01/08/25 02:27 Oxygen Delivery Room Air 01/08/25 02:27 Temperature 97.9 F 01/08/25 02:27 Pulse Rate 105 H 01/08/25 02:27 Respiratory Rate 17 01/08/25 02:27 Blood Pressure 172/87 H 01/08/25 02:27 Pulse Oximetry 97 01/08/25 02:27 Oxygen Delivery Room Air 01/08/25 02:27 MDM - Extremity (Nontraumatic) MDM Narrative Medical decision making narrative: Patient presents with atraumatic knee pain, ongoing for while but worsening the last few days, he is able to ambulate, normal range of motion, no effusion, no redness of the skin or swelling of the knee or tenderness on exam, x-ray on my independent interpretation does not show any obvious osseous abnormality, I did offer steroids which patient declined, Toradol shot which he declined, he did ask for knee brace which we unfortunately do not have, I will provide Reid wrap and he is to follow up with Ortho/Podiatry as needed, patient agreeable to this plan and he would like to have a work note also Discharge Plan Discharge Clinical Impression: Acute knee pain Patient Disposition: Home Condition: Stable Instructions: Knee Sprain (ED) Additional Instructions: Please follow-up with the foot and knee doctor, you can always return to the ER for any further issues. Patient Language: Ecuadorean Prescriptions: No Action albuterol sulfate 90 mcg/actuation HFA aerosol inhaler 1 puff inhalation QID PRN (Reason: shortness of breath or wheezing) Qty: 6.7 0RF benzonatate 100 mg capsule 100 mg PO TID PRN (Reason: cough) Qty: 14 0RF Follow-up/Referrals: Chaim Reagan Jr., DPM [Physician] - 2 Days Allison,CLAY Montanez [Primary Care Provider] - German Sharpe MD [Physician] - 2 Days Stand Alone Forms: Work/School Release IP
[2025-01-08 04:50] VITALS: BP 138/76; PULSE 67; RESP 18; TEMP 36.4; O2SAT 97
[2025-01-08 05:04] VITALS: BP 138/76; PULSE 67; RESP 18; TEMP 36.4; O2SAT 97
== END 2025-01-08 05:05 | disposition home or self-care (01) ==
LOC: ANHED 04:19
PROVIDERS: Emergency Provider Emergency Medicine; PCP Registered Nurse
DX: M25.562 Pain in left knee (principal)
CPT/HCPCS: 73562; 99283

== ENCOUNTER 2025-04-29 14:40 | Emergency (ER) | payer SELFPAY ==
[2025-04-29 14:47] VITALS: BP 132/79; PULSE 85; RESP 20; TEMP 36.6; O2SAT 96
--- NOTE | 2025-04-29 15:05 | ED_ITS ---
HPI - Extremity Problem General Chief complaint: Extremity Problem,Nontraumatic Stated complaint: pain in both legs patient presents to the [facility] with complaints pain in both knees and pain in of his feet. Patient noted the pain in the knees started several months ago and only in the left. Patient was evaluated in the emergency room noted he was told to use anti-inflammatory medications and a brace. Patient stated he did this occasionally but this did not help with symptoms. Patient reports now has pain on the other side. Patient does report working 2 jobs in being on his feet very frequently. Patient noted issues are old but reports getting new insoles and thought this would help with symptoms. Patient noted the pain in his feet has been intermittent for the last couple weeks and across the bottom of his foot. No medication remedies attempted for symptoms recently. Denies any fall, trauma, or injury to these areas. Denies redness, bruising, swelling, numbness, or tingling in any of these areas. Related Data Allergies Allergy/AdvReac Type Severity Reaction Status Date / Time peanut Allergy Hives Verified 04/29/25 14:46 Review of Systems Constitutional: Constitutional: Reports as per HPI, Denies chills, Denies fatigue, Denies fever(s) and Denies weakness Eyes: Eyes: Reports no additional eye complaints Cardiovascular: Cardiovascular: Reports no additional cardiovascular complaints Respiratory: Respiratory: Reports no additional respiratory complaints Gastrointestinal: Gastrointestinal: Reports no additional gastrointestinal complaints Genitourinary: Genitourinary: Reports no additional male genitourinary complaints Musculoskeletal: Musculoskeletal: Reports as per HPI, Denies myalgias, Reports arthralgias, Reports joint swelling and Reports muscle cramps Integumentary/Breasts: Skin/Breast: Reports as per HPI, Denies erythema, Denies rash and Denies skin ulcer Neurologic: Reports as per HPI, Denies headache(s), Denies focal weakness and Denies weakness Psychiatric: Psychiatric: Reports no additional psychiatric complaints Endocrine: Endocrine: Reports no additional endocrine complaints Hematologic/Lymphatic: Hematologic/Lymphatic: Reports no additional hematologic/lymphatic complaints Allergic/Immunologic: Allergic/Immunologic: Reports no additional allergic/immunologic complaints Exam Const: General: healthy appearing and no acute distress Nutritional Appearance: well nourished Orientation/consciousness: patient oriented x3 Limitations: no limitations Resp: Effort & Inspection: normal respiratory effort Auscultation: clear to auscultation bilaterally Cardio: Rate: regular rate Rhythm: regular rhythm Back/Spine/Pelvis: Back: no CVA tenderness Other: No lumbar spinal tenderness, no paraspinal tenderness. back range of motion normal. Skin: General skin exam: normal color Rashes: no rashes Wounds: no wounds Neuro: General: patient oriented x3 and moves all extremities Speech: normal speech Gait exam (Neuro): gait abnormal ( Slight limping) Extrem: Right lower extremity: knee Details: normal to inspection, tenderness Location: of the patella, of the medial joint line and of the lateral joint line, abnormal ROM Details: pain with active ROM during and knee ligament exam normal; no abrasions, no lacerations, no ecchymosis, no crepitus, no foreign bodies, no penetrating wound, no deformity and no unusual warmth and foot Details: normal capillary refill, normal to inspection, toes with normal ROM, vascular exam Details: dorsalis pedis pulse present, posterior tibial pulse present and normal capillary refill, tendon exam Details: active flexion normal and active extension normal and motor-sensory exam Details: two point discrimination normal, light-touch normal and pin-prick normal; no tenderness Left lower extremity: knee Details: normal to inspection, tenderness Location: of the patella, of the medial joint line and of the lateral joint line, abnormal ROM and knee ligament exam normal; inspection normal, no swelling, ROM abnormal, no abrasions, no lacerations, no ecchymosis, no crepitus, no foreign bodies, no deformity and no unusual warmth and foot Details: normal capillary refill, normal to inspection, toes with normal ROM, vascular exam Details: dorsalis pedis pulse present, posterior tibial pulse present and normal capillary refill, tendon exam active flexion normal and active extension normal and motor-sensory exam two point discrimination normal, light-touch normal and pin-prick normal; no tenderness, no unusual warmth, no edema, no abrasions, no lacerations, no ecchymosis, no foreign bodies and no puncture wound Psych: Mental Status: mental status grossly normal Affect: normal affect Attitude: cooperative Course Course Level of Care: Express Care Visit Vital Signs Vital signs: Vital Signs Temperature 97.9 F 04/29/25 14:47 Pulse Rate 85 04/29/25 14:47 Respiratory Rate 20 04/29/25 14:47 Blood Pressure 132/79 04/29/25 14:47 Pulse Oximetry 96 04/29/25 14:47 Oxygen Delivery Room Air 04/29/25 14:47 Temperature 97.9 F 04/29/25 14:47 Pulse Rate 85 04/29/25 14:47 Respiratory Rate 20 04/29/25 14:47 Blood Pressure 132/79 04/29/25 14:47 Pulse Oximetry 96 04/29/25 14:47 Oxygen Delivery Room Air 04/29/25 14:47 MDM - Extremity (Nontraumatic) MDM Narrative Medical decision making narrative: given area pain in knees quadriceps tendinitis and patella tendinitis due to overuse Bowie likely diagnosis. Educated patient on anti-inflammatories and exercises. Recommended follow-up next week with primary care physician for further evaluation possible PT or more advanced imaging. Foot pain more likely to be related to issues. Recommended issues versus just new insoles. [facility] 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 Available medical records were reviewed at this time. Exam findings show no acute concerns or changes; patient is non-toxic appearing and is in no distress. Patient is appropriate for outpatient treatment and follow-up. I have evaluated and discussed social determinants of health with the patient that could potentially impact subsequent diagnosis and treatment plans. Differential diagnosis and treatment plan were discussed with the patient. Patient agrees with discussion and after shared medical decision making agrees with plan of care. All questions were answered to the patient's satisfaction. Differential Diagnosis Differential diagnosis: Likely gout, cellulitis and lower extremity edema Medical Records Attestation: I reviewed the patient's medical records. Imaging Data My impression: reviewed the x-ray from [facility] Discharge Plan Discharge Clinical Impression: Tendinitis of both knees, Arthralgia of both feet Patient Disposition: Home Condition: Stable Instructions: Antibiotic Form, Plantar Fasciitis (ED), Arthralgia (ED), Patellar Tendinitis (ED) Additional Instructions: This is likely muscular in nature recommended resting for 2 days then begin applying heat for 20 minutes then gentle range of motion or massaged then ice for 20 minute several times per day. take ibuprofen or naproxen as directed consistently this will help with inflammation. May use the muscle relaxers as needed this can make you drowsy do not drive, drink alcohol or operate heavy machinery while taking this medication. Follow-up with primary care physician within the next week if symptoms not improved if you notice any significant numbness, tingling, weakness, or neck pain follow-up with emergency room for immediate evaluation. Patient Language: Chinese Prescriptions: New methocarbamol 750 mg tablet 750 mg PO TID Qty: 30 0RF methylprednisolone [Medrol (Percy)] 4 mg tablets,dose pack See Rx Instructions .ROUTE .COMPLEX Qty: 21 0RF Rx Instructions: for 6 days Follow-up/Referrals: Allison,CLAY Montanez [Primary Care Provider] Stand Alone Forms: Work/School Release IP Time of Disposition: 15:17
== END 2025-04-29 15:22 | disposition home or self-care (01) ==
PROVIDERS: Emergency Provider Nurse Practitioner Family; PCP Registered Nurse
DX: M67.863 Other specified disorders of tendon, right knee (principal); M67.864 Other specified disorders of tendon, left knee; M25.572 Pain in left ankle and joints of left foot; M25.571 Pain in right ankle and joints of right foot
CPT/HCPCS: 99213; G0463

== ENCOUNTER 2025-05-27 15:49 | Emergency (ER) | payer SELFPAY ==
--- NOTE | ~2025-05-27 | XR_ITS ---
EXAMINATION: XR knee RT 3V, 05/27/2025 16:15 CDT HISTORY: knee pain COMPARISON: No comparisons available. Findings: No acute fracture or malalignment. No significant degenerative changes. Soft tissues unremarkable. Impression: No acute fracture or malalignment. Reviewed, dictated and finalized at location P. Impression: No acute fracture or malalignment.
[2025-05-27 15:59] VITALS: BP 135/81; PULSE 105; RESP 20; TEMP 36.7; O2SAT 98
--- NOTE | 2025-05-27 16:06 | ED_ITS ---
HPI - Extremity Problem General Chief complaint: Extremity Problem,Nontraumatic Stated complaint: Sharp pain in R knee Patient presents to the [facility] with complaints of increased pain in the right knee that began today while at work. Patient reports he was evaluated here a few weeks ago for pain in both knees did take the medication that was given to him and symptoms did improve. Patient reports doing exercises at home but then noted he began having some muscle cramping in his thighs after doing the exercises. reports he does plan on getting new shoes which he believes is part of the problem but he is on his feet frequently and works often. Patient does note back in December did have injury to left knee and was evaluated in the emergency room. Patient still does continue to struggle with pain in this left knee. Denies using any braces or support to either knee. Denies numbness, tingling, redness, swelling, or bruising. Related Data Allergies Allergy/AdvReac Type Severity Reaction Status Date / Time peanut Allergy Hives Verified 05/27/25 16:02 Review of Systems Constitutional: Constitutional: Reports as per HPI, Denies chills, Denies fatigue, Denies fever(s) and Denies weakness Eyes: Eyes: Reports no additional eye complaints ENT: Reports system reviewed and no additional complaints, except as documented Cardiovascular: Cardiovascular: Reports no additional cardiovascular complaints Respiratory: Respiratory: Reports no additional respiratory complaints Gastrointestinal: Gastrointestinal: Reports no additional gastrointestinal complaints Genitourinary: Genitourinary: Reports no additional male genitourinary complaints Musculoskeletal: Musculoskeletal: Reports as per HPI, Reports arthralgias, Denies joint swelling and Denies muscle cramps Integumentary/Breasts: Skin/Breast: Reports as per HPI, Denies erythema, Denies rash and Denies skin ulcer Neurologic: Reports as per HPI, Denies headache(s), Denies numbness and Denies weakness Psychiatric: Psychiatric: Reports no additional psychiatric complaints Endocrine: Endocrine: Reports no additional endocrine complaints Hematologic/Lymphatic: Hematologic/Lymphatic: Reports no additional hematologic/lymphatic complaints Allergic/Immunologic: Allergic/Immunologic: Reports no additional allergic/immunologic complaints Exam Const: General: healthy appearing and no acute distress Nutritional Appearance: well nourished Orientation/consciousness: patient oriented x3 Limitations: no limitations Resp: Effort & Inspection: normal respiratory effort Auscultation: clear to auscultation bilaterally Cardio: Rate: regular rate Rhythm: regular rhythm Skin: General skin exam: normal color Rashes: no rashes Wounds: no wounds Neuro: General: patient oriented x3 and moves all extremities Speech: normal speech Gait exam (Neuro): gait abnormal (limping. ) Extrem: Right lower extremity: knee Details: normal to inspection, tenderness, abnormal ROM and knee ligament exam normal; inspection normal, no swelling, ROM abnormal, normal knee ligament exam, no abrasions, no lacerations, no ecchymosis, no crepitus (popping noted with ROM ), no foreign bodies, no penetrating wound, no deformity and no unusual warmth Left lower extremity: knee Details: normal to inspection, tenderness, normal ROM and knee ligament exam normal; inspection normal, no swelling, ROM normal, normal knee ligament exam, no abrasions, no lacerations, no ecchymosis, no crepitus, no foreign bodies, no penetrating wound, no deformity and no unusual warmth Psych: Mental Status: mental status grossly normal Affect: normal affect Attitude: cooperative Course Course Level of Care: Express Care Visit Vital Signs Vital signs: Vital Signs Temperature 98.0 F 05/27/25 15:59 Pulse Rate 105 H 05/27/25 15:59 Respiratory Rate 20 05/27/25 15:59 Blood Pressure 135/81 05/27/25 15:59 Pulse Oximetry 98 05/27/25 15:59 Oxygen Delivery Room Air 05/27/25 15:59 Temperature 98.0 F 05/27/25 15:59 Pulse Rate 105 H 05/27/25 15:59 Respiratory Rate 20 05/27/25 15:59 Blood Pressure 135/81 05/27/25 15:59 Pulse Oximetry 98 05/27/25 15:59 Oxygen Delivery Room Air 05/27/25 15:59 MDM - Extremity (Nontraumatic) MDM Narrative Medical decision making narrative: Reviewed ER note, reviewed previous note from [facility], reviewed x-rays. Obtained x-ray of right knee today spoke with patient about need for follow-up with orthopedics or primary care physician and he would need to see physical therapy and have further evaluation of this knee. Educated patient on consistency of medication taking, brace usage, and exercises at home. printed exercises for home use for knee therapy. The patient was evaluated by myself in the [facility]. 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 Available medical records were reviewed at this time. Exam findings show no acute concerns or changes; patient is non-toxic appearing and is in no distress. Patient is appropriate for outpatient treatment and follow-up. I have evaluated and discussed social determinants of health with the patient that could potentially impact subsequent diagnosis and treatment plans. Differential diagnosis and treatment plan were discussed with the patient. Patient agrees with discussion and after shared medical decision making agrees with plan of care. All questions were answered to the patient's satisfaction. Differential Diagnosis Differential diagnosis: Likely lower extremity edema and other ( tendinitis, arthritis, gout,) Medical Records Attestation: I reviewed the patient's medical records. Imaging Data Attestation: I personally reviewed and interpreted this imaging study as follow s: My impression: no fracture or abnormalities Radiologist's impression: Impression: No acute fracture or malalignment. Reviewed, dictated and finalized at location P. Discharge Plan Discharge Clinical Impression: Arthralgia of knee, right, Arthralgia of knee, left Patient Disposition: Home Condition: Stable Instructions: Antibiotic Form, Knee Pain (ED), Arthralgia (ED), Tendinitis (ED) Additional Instructions: Xray showed no fracture. Minimize activities that aggravate the condition The RICE protocol. Follow the RICE protocol as soon as possible after your injury: Rest your affected limb by not walking on it/not using this. Ice should be immediately applied to keep the swelling down. It can be used for 20 to 30 minutes, three or four times daily. Do not apply ice directly to your skin. Gentle range of motion exercises as tolerated. Compression dressings, bandages or mine-wraps will immobilize and support your injured limb Elevate affected area above the level of your heart if possible as often as possible during the first 48 hours then as needed for increased swelling. Medication: Nonsteroidal anti-inflammatory drugs (NSAIDs) such as ibuprofen and naproxen can help control pain and swelling. Because they improve function by both reducing swelling and controlling pain, they are a better option for mild sprains than narcotic pain medicines. Please schedule a follow-up visit with your personal physician for further evaluation and treatment within 1week OR If your symptoms persist, change or worsen significantly before you can contact your personal physician then please, without delay, go to the emergency department for further evaluation. Patient Language: Kiswahili Prescriptions: New naproxen 500 mg tablet 500 mg PO BID PRN (Reason: pain) Qty: 40 0RF No Action methocarbamol 750 mg tablet 750 mg PO TID Qty: 30 0RF Follow-up/Referrals: Patrice Maguire MD [Physician, Orthopedics] Referral Note: call for a follow up Allison,CLAY Montanez [Primary Care Provider] Stand Alone Forms: Work/School Release IP Time of Disposition: 16:33
== END 2025-05-27 16:45 | disposition home or self-care (01) ==
PROVIDERS: Emergency Provider Nurse Practitioner Family; PCP Registered Nurse
DX: M25.561 Pain in right knee (principal); M25.562 Pain in left knee
CPT/HCPCS: 73562; 99213; G0463